=== PATIENT | female | born 1955 | race Caucasian/White ===

== ENCOUNTER 2017-04-02 17:28 | Emergency (ER) | payer MEDICARE, OTHER ==
[~2017-04-02 17:28] MED LIST: PRIL40CA PO; XOPEAER4 INH; [UNRECOGNIZED DRUG - CODE] NEB
[2017-04-02 17:33] VITALS: BP 132/60; PULSE 53; RESP 16; TEMP 98; O2SAT 97
[2017-04-02] MEDS ORDERED: OMEP40CA2 PO (17:38)
[2017-04-02] MEDS ORDERED: traMADol HCL 50 MG TAB PO ONE (17:45)
--- NOTE | 2017-04-02 17:52 | PD ---
HPI Chief Complaint: Injury Time Seen by Provider: 17:44 Travel History International Travel<30 days: No Contact w/Intl Traveler<30days: No Traveled to known affect area: No History of Present Illness HPI 62-year-old female presents to the emergency room via ambulance for evaluation of right anterior knee pain after being struck on the patella with a baseball just prior to arrival. Her son is a pitcher and while practicing with him, he accidentally threw the ball at her knee. Patient immediately fell to the ground in pain. She could not get up. Pain is exacerbated with any range of motion of the right lower external. Denies any other injuries. Denies lower extremity paresthesias. History of stomach ulcers, varices, liver failure, and bradycardia. She is not on blood thinners. PFSH Past Medical History Hx Anticoagulant Therapy: No Arthritis: Yes Asthma: Yes Atrial Fibrillation: Yes Autoimmune Disease: Yes (lupus) Blood Disorders: No Anxiety: No Depression: No Heart Rhythm Problems: Yes (bradycardia, a-fib, HOLTER MONITOR) Cancer: No Cardiac Catheterization: Yes (10/19/15) Cardiovascular Problems: Yes High Cholesterol: No Chemotherapy: No Chest Pain: Yes Congestive Heart Failure: No COPD: No Cerebrovascular Accident: Yes Developmental Delay: No Diabetes: No Diminished Hearing: No Endocrine: No Gastrointestinal Disorders: Yes (BENIGN ABD TUMOR REMOVED (ENCAP)) GERD: Yes Glaucoma: No Genitourinary: No Headaches: Yes Hepatitis: No Hiatal Hernia: No Hypertension: No Immune Disorder: No Kidney Stones: No Musculoskeletal: Yes Neurologic: Yes (HX OF SHINGLES -HAS POST NEURALGIA PAIN) Psychiatric: Yes Respiratory: Yes (ASTHMA) Immunizations Current: Yes Migraines: No Myocardial Infarction: No Radiation Therapy: No Seizures: Yes (last seizure in 2002 does not take meds) Sleep Apnea: No Thyroid Disease: No Ulcer: Yes Tetanus Vaccination: > 5 Years Influenza Vaccination: Yes ?: Not Menopausal: Yes Past Surgical History Abdominal Surgery: Yes (ABDOMINAL TUMOR REMOVED, DEISY 1974) AICD: No Appendectomy: Yes Cholecystectomy: No Coronary Artery Bypass Graft: No Endocrine Surgery: No Genitourinary Surgery: Yes Gynecologic Surgery: Yes (hyst 1982) Hysterectomy: Yes Joint Replacement: No Neurologic Surgery: No Oral Surgery: Yes (abcess tooth 01/2005, TONSLECTOMY 1963) Pacemaker: No Thoracic Surgery: No Tonsillectomy: Yes Other Surgery: Yes Social History Alcohol Use: No Tobacco Use: No Substance Use: No Allergies-Medications (Allergen,Severity, Reaction): Coded Allergies: Aspirin (Verified Allergy, Severe, RESPIRATORY/GASTRO DISTRESS, 04/02/17) Beta Blockers (Verified Allergy, Severe, DECREASED HEART RATE, 04/02/17) Caffeine (Verified Allergy, Severe, Seizures, 04/02/17) Contrast Media (Verified Allergy, Severe, Anaphylaxis, 04/02/17) CAUSES ANAPHALYXSIS IN PT, PT MUST BE PREMEDICATED WITH CLARITIN, ZANTAC AND PREDNISONE Lidocaine (Verified Allergy, Severe, Anaphylaxis, 04/02/17) Sudafed (Unverified Allergy, Severe, SUSTAINED ATRIAL FIB, 04/02/17) Ceftin (Verified Allergy, Unknown, unknown, 04/02/17) Doxycycline (Verified Allergy, Unknown, unknown, 04/02/17) Uncoded Allergies: decongestants (Adverse Reaction, Severe, AFib, 05/24/13) Reported Meds & Prescriptions Reported Meds & Active Scripts Active Reported Omeprazole 40 Mg Cap 40 Mg PO DAILY Xopenex Hfa 15 GM Inh (Levalbuterol 15 GM Inh) Unknown Strength Aer Unknown Dose INH Q4HR PRN Shake well before using. (1 puff = 45 mcg) Xopenex Neb (Levalbuterol HCl) Unknown Strength Neb Unknown Dose NEB QID PRN Review of Systems Except as stated in HPI: all other systems reviewed are Neg Physical Exam Narrative GENERAL: Well-nourished, well-developed female in no acute distress. Afebrile. Ambulatory. SKIN: Focused skin assessment warm/dry. 2 cm area of ecchymosis and 4 cm area of erythema to the right anterior knee. HEAD: Normocephalic. EYES: No scleral icterus. No injection or drainage. NECK: Supple, trachea midline. No JVD or lymphadenopathy. CARDIOVASCULAR: Regular rate and rhythm without murmurs, gallops, or rubs. RESPIRATORY: Breath sounds equal bilaterally. No accessory muscle use. EXTREMITY: Right knee is extremely tender to palpation over the patella. Limited range of motion secondary to pain. 2+ dorsalis pedis pulse. Full range motion of the right foot and ankle. Data Data Last Documented VS Vital Signs Date Time Temp Pulse Resp B/P Pulse Ox O2 Delivery O2 Flow Rate FiO2 04/02/17 17:33 98.0 53 16 132/60 97 Room Air Orders Knee, Complete (4vws) (04/02/17 ) Tramadol (Ultram) (04/02/17 17:45) Acetaminophen (Tylenol) (04/02/17 18:00) MDM Medical Decision Making Medical Screen Exam Complete: Yes Emergency Medical Condition: Yes Medical Record Reviewed: Yes Differential Diagnosis Fracture, contusion, strain, sprain Narrative Course 62-year-old female presents to the emergency room for evaluation of right knee pain after a baseball strike her knee just prior to arrival. Patient states pain is severe and she cannot walk on it. Physical exam reveals a 2 cm area of ecchymosis in the right anterior knee. It is extremely to palpation. Right lower extremity is neurovascularly intact with 2+ dorsalis pedis pulse. Patient given Tylenol, as requested, for pain. X-ray is negative for acute bony abnormality. Patient has severe osteoarthritis and was made aware. Placed in Benjy wrap and given crutches to use for support. She was discharged with orthopedic instructions and told to follow-up with the primary care physician or return for worsening symptoms. She stands and agrees to plan. Diagnosis Primary Impression: Contusion of right knee Qualified Code: S80.01XA - Contusion of right knee, initial encounter Referrals: Primary Care Physician Patient Instructions: Contusion in Adults (ED), General Instructions Additional Instructions: Rest and drink plenty of fluids. Take Tylenol as directed, as needed for pain. Elevate, keep wrapped, and apply ice to the affected area for 20 minutes at a time, as needed for pain and swelling. Follow-up with a primary care physician. Return to the emergency room for worsening symptoms. Med/Other Pt SpecificInfo: Prescription(s) given Disposition: 01 DISCHARGE HOME Condition: Stable Ellen Edward Apr 02, 2017 17:51
[2017-04-02] MEDS ORDERED: ACETAMINOPHEN 325 MG TAB PO ONE (18:00)
--- NOTE | 2017-04-02 18:47 | RADRPT ---
EXAM DATE/TIME: 04/02/2017 18:17 [facility] COMPARISON: No previous studies available for comparison. INDICATIONS : Hit in knee with a baseball MEDICAL HISTORY : A-Fib SURGICAL HISTORY : None. ENCOUNTER: Initial ACUITY: 1 day PAIN SCORE: 10/10 LOCATION: Right knee FINDINGS: Severe osteoarthritis is noted involving the patellofemoral joint and moderate osteoarthritis is note d involving the medial femoral tibial joint. There is a large suprapatellar knee joint effusion. Th ere is no acute fracture or dislocation. CONCLUSION: 1. Severe osteoarthritis involving the patellofemoral joint and moderate osteoarthritis involving th e medial femoral tibial joint. 2. Large suprapatellar knee joint effusion. 3. No acute fracture or dislocation. Lemuel Martins MD on April 02, 2017 at 18:34 Board Certified Radiologist. This report was verified electronically.
== END 2017-04-02 19:33 | disposition home or self-care (01) ==
LOC: PHEFT 17:28
DX: S80.01XA Contusion of right knee, initial encounter (principal); W21.03XA Struck by baseball, initial encounter; Y93.64 Activity, baseball
CPT/HCPCS: 73564; 99283; E0113

== ENCOUNTER 2017-09-16 09:54 | Emergency (ER) | payer MEDICARE, OTHER ==
[~2017-09-16] VITALS: Ht 170.2 cm; Wt 124.9 kg
[~2017-09-16 09:54] MED LIST changes: +OMEP40CA2 PO; -PRIL40CA PO
[2017-09-16 10:21] VITALS: BP 139/74; PULSE 80; RESP 16; TEMP 99.9; O2SAT 97
--- NOTE | 2017-09-16 11:16 | PD ---
HPI Chief Complaint: Cold / Flu Symptoms Time Seen by Provider: 10:48 Travel History International Travel<30 days: No Contact w/Intl Traveler<30days: No Traveled to known affect area: No History of Present Illness HPI 62-year-old female here with sinus pain and pressure, cough, and fever 6 days. She reports occasional shortness of breath with coughing episodes. She reports mucopurulent nasal discharge. Symptoms severity is moderate. No aggravating or relieving factors. PFSH Past Medical History Hx Anticoagulant Therapy: No Arthritis: Yes Asthma: Yes Atrial Fibrillation: Yes Autoimmune Disease: Yes (lupus) Blood Disorders: No Anxiety: No Depression: No Heart Rhythm Problems: Yes (bradycardia, a-fib, HOLTER MONITOR) Cancer: No Cardiac Catheterization: Yes (10/19/15) Cardiovascular Problems: Yes High Cholesterol: No Chemotherapy: No Chest Pain: Yes Congestive Heart Failure: No COPD: No Cerebrovascular Accident: Yes Developmental Delay: No Diabetes: No Diminished Hearing: No Endocrine: No Gastrointestinal Disorders: Yes (BENIGN ABD TUMOR REMOVED (ENCAP)) GERD: Yes Glaucoma: No Genitourinary: No Headaches: Yes Hepatitis: No Hiatal Hernia: No Hypertension: No Immune Disorder: No Kidney Stones: No Musculoskeletal: Yes Neurologic: Yes (HX OF SHINGLES -HAS POST NEURALGIA PAIN) Psychiatric: Yes Respiratory: Yes (asthma) Immunizations Current: Yes Migraines: No Myocardial Infarction: No Radiation Therapy: No Seizures: Yes (last seizure in 2002 does not take meds) Sleep Apnea: No Thyroid Disease: No Ulcer: Yes Tetanus Vaccination: > 5 Years Influenza Vaccination: Yes ?: Not Menopausal: Yes Past Surgical History Abdominal Surgery: Yes (ABDOMINAL TUMOR REMOVED, DEISY 1974) AICD: No Appendectomy: Yes Cholecystectomy: No Coronary Artery Bypass Graft: No Endocrine Surgery: No Genitourinary Surgery: Yes Gynecologic Surgery: Yes (hyst 1982) Hysterectomy: Yes Joint Replacement: No Neurologic Surgery: No Oral Surgery: Yes (abcess tooth 01/2005, TONSLECTOMY 1963) Pacemaker: No Thoracic Surgery: No Tonsillectomy: Yes Other Surgery: Yes Social History Alcohol Use: No Tobacco Use: No Substance Use: No Allergies-Medications (Allergen,Severity, Reaction): Coded Allergies: acebutolol (Unverified Allergy, Severe, DECREASED HEART RATE, 09/16/17) aspirin (Unverified Allergy, Severe, RESPIRATORY/GASTRO DISTRESS, 09/16/17) atenolol (Unverified Allergy, Severe, DECREASED HEART RATE, 09/16/17) betaxolol (Unverified Allergy, Severe, DECREASED HEART RATE, 09/16/17) caffeine (Unverified Allergy, Severe, Seizures, 09/16/17) carvedilol (Unverified Allergy, Severe, DECREASED HEART RATE, 09/16/17) diatrizoate meglumine (Unverified Allergy, Severe, Anaphylaxis, 09/16/17) CAUSES ANAPHALYXSIS IN PT, PT MUST BE PREMEDICATED WITH CLARITIN, ZANTAC AND PREDNISONE gadobenic acid (Unverified Allergy, Severe, Anaphylaxis, 09/16/17) CAUSES ANAPHALYXSIS IN PT, PT MUST BE PREMEDICATED WITH CLARITIN, ZANTAC AND PREDNISONE gadodiamide (Unverified Allergy, Severe, Anaphylaxis, 09/16/17) CAUSES ANAPHALYXSIS IN PT, PT MUST BE PREMEDICATED WITH CLARITIN, ZANTAC AND PREDNISONE gadoteridol (Unverified Allergy, Severe, Anaphylaxis, 09/16/17) CAUSES ANAPHALYXSIS IN PT, PT MUST BE PREMEDICATED WITH CLARITIN, ZANTAC AND PREDNISONE iodixanol (Unverified Allergy, Severe, Anaphylaxis, 09/16/17) CAUSES ANAPHALYXSIS IN PT, PT MUST BE PREMEDICATED WITH CLARITIN, ZANTAC AND PREDNISONE iohexol (Unverified Allergy, Severe, Anaphylaxis, 09/16/17) CAUSES ANAPHALYXSIS IN PT, PT MUST BE PREMEDICATED WITH CLARITIN, ZANTAC AND PREDNISONE labetalol (Unverified Allergy, Severe, DECREASED HEART RATE, 09/16/17) lidocaine (Unverified Allergy, Severe, Anaphylaxis, 09/16/17) metoprolol (Unverified Allergy, Severe, DECREASED HEART RATE, 09/16/17) nebivolol (Unverified Allergy, Severe, DECREASED HEART RATE, 09/16/17) pindolol (Unverified Allergy, Severe, DECREASED HEART RATE, 09/16/17) propranolol (Unverified Allergy, Severe, DECREASED HEART RATE, 09/16/17) pseudoephedrine (Unverified Allergy, Severe, SUSTAINED ATRIAL FIB, 09/16/17 ) sotalol (Unverified Allergy, Severe, DECREASED HEART RATE, 09/16/17) timolol (Unverified Allergy, Severe, DECREASED HEART RATE, 09/16/17) cefuroxime (Unverified Allergy, Unknown, unknown, 09/16/17) doxycycline (Unverified Allergy, Unknown, unknown, 09/16/17) Uncoded Allergies: decongestants (Adverse Reaction, Severe, AFib, 09/16/17) . Reported Meds & Prescriptions Reported Meds & Active Scripts Active Amoxicillin 500 Mg Tab 500 Mg PO TID 10 Days Review of Systems Except as stated in HPI: all other systems reviewed are Neg General / Constitutional: Positive: Fever HENT: Positive: Congestion Respiratory: Positive: Cough, Shortness of Breath Physical Exam Narrative GENERAL: Alert ill-appearing female in no distress. SKIN: Warm and dry. HEAD: Normocephalic. EYES: No scleral icterus. No injection or drainage. MOUTH: Pharyngeal erythema without tonsillar hypertrophy or exudate. NECK: Supple, trachea midline. No JVD or lymphadenopathy. CARDIOVASCULAR: Regular rate and rhythm without murmurs, gallops, or rubs. RESPIRATORY: Breath sounds equal bilaterally. No accessory muscle use. GASTROINTESTINAL: Abdomen soft, non-tender, nondistended. MUSCULOSKELETAL: No cyanosis, or edema. BACK: Nontender without obvious deformity. No CVA tenderness. Data Data Last Documented VS Vital Signs Date Time Temp Pulse Resp B/P (MAP) Pulse Ox O2 Delivery O2 Flow Rate FiO2 09/16/17 10:37 Room Air 09/16/17 10:21 99.9 80 16 139/74 (95) 97 Orders Orders Ed Discharge Order (09/16/17 11:21) MDM Medical Decision Making Medical Screen Exam Complete: Yes Emergency Medical Condition: Yes Differential Diagnosis Influenza, URI, sinusitis, bronchitis, pneumonia Narrative Course 62-year-old female here with fever, sinus pain and pressure, reported purulent nasal discharge. She is requesting a refill of her inhaler as she has run out. She has tenderness over the frontal maxillary sinuses. She appears to have sinusitis/viral URI. Patient reports she can only take amoxicillin and Xopenex. Diagnosis Primary Impression: Sinusitis Qualified Codes: J01.10 - Acute frontal sinusitis, unspecified Referrals: Primary Care Physician Scripts Prednisone (Prednisone) 20 Mg Tab 20 MG PO BID for 5 Days, #10 TAB 0 Refills Prov: Lily Leal 09/16/17 Levalbuterol 15 GM Inh (Xopenex Hfa 15 GM Inh) 45 Mcg/Act Aer 90 MCG INH Q4HR, #2 INHALER 0 Refills Shake well before using. (1 puff = 45 mcg) Prov: Lily Leal 09/16/17 Amoxicillin (Amoxicillin) 500 Mg Tab 500 MG PO TID for Infection for 10 Days, TAB 0 Refills Prov: Lily Leal 09/16/17 Disposition: 01 DISCHARGE HOME Condition: Stable Lily Leal Sep 16, 2017 11:16
[2017-09-16] MEDS ORDERED: AMOX500T PO (11:19)
[2017-09-16] MEDS ORDERED: XOPEAER4 INH (12:02)
[2017-09-16] MEDS ORDERED: PRED20 PO (12:02)
== END 2017-09-16 11:21 | disposition home or self-care (01) ==
LOC: PHEFT 09:54
DX: J01.10 Acute frontal sinusitis, unspecified (principal); R05 Cough; R50.9 Fever, unspecified; R06.02 Shortness of breath; R09.3 Abnormal sputum; Z87.39 Personal history of other diseases of the musculoskeletal system and connective tissue; Z87.09 Personal history of other diseases of the respiratory system; Z86.79 Personal history of other diseases of the circulatory system; Z86.2 Personal history of diseases of the blood and blood-forming organs and certain disorders involving the immune mechanism; Z87.19 Personal history of other diseases of the digestive system; Z86.69 Personal history of other diseases of the nervous system and sense organs
CPT/HCPCS: 99284

== ENCOUNTER 2017-10-09 01:02 | Emergency (ER) | payer MEDICARE, OTHER ==
[~2017-10-09] VITALS: Ht 170.2 cm; Wt 122.5 kg
[~2017-10-09 01:02] MED LIST changes: +AMOX500T PO; -OMEP40CA2 PO; +PRED20 PO; -[UNRECOGNIZED DRUG - CODE] NEB
[2017-10-09 01:09] VITALS: BP 160/68; PULSE 62; RESP 22; TEMP 97.7; O2SAT 98
--- NOTE | 2017-10-09 01:18 | PD ---
HPI Chief Complaint: Fall Time Seen by Provider: 01:15 Travel History International Travel<30 days: No Contact w/Intl Traveler<30days: No Traveled to known affect area: No History of Present Illness HPI The patient is a 62-year-old female that was at a New Year's green party but did not drink anything and fell on her left thorax area. There was no other injury other than to her left anterior thorax and left lateral chest. She denies specifically any C-spine, T-spine or LS-spine discomfort. She denies any head trauma. The patient states she really cannot take anything but plain Tylenol for pain. PFSH Past Medical History Hx Anticoagulant Therapy: No Arthritis: Yes Asthma: Yes Atrial Fibrillation: Yes Autoimmune Disease: Yes (lupus) Blood Disorders: No Anxiety: No Depression: No Heart Rhythm Problems: Yes (bradycardia, a-fib, HOLTER MONITOR) Cancer: No Cardiac Catheterization: Yes (10/19/15) Cardiovascular Problems: Yes High Cholesterol: No Chemotherapy: No Chest Pain: Yes Congestive Heart Failure: No COPD: No Cerebrovascular Accident: Yes Developmental Delay: No Diabetes: No Diminished Hearing: No Endocrine: No Gastrointestinal Disorders: Yes (BENIGN ABD TUMOR REMOVED (ENCAP)) GERD: Yes Glaucoma: No Genitourinary: No Headaches: Yes Hepatitis: No Hiatal Hernia: No Hypertension: No Immune Disorder: No Kidney Stones: No Musculoskeletal: Yes Neurologic: Yes (HX OF SHINGLES -HAS POST NEURALGIA PAIN) Psychiatric: Yes Respiratory: Yes (asthma) Immunizations Current: Yes Migraines: No Myocardial Infarction: No Radiation Therapy: No Seizures: Yes (last seizure in 2002 does not take meds) Sleep Apnea: No Thyroid Disease: No Ulcer: Yes ?: Not Menopausal: Yes Past Surgical History Abdominal Surgery: Yes (ABDOMINAL TUMOR REMOVED, APPJony 1974) AICD: No Appendectomy: Yes Cholecystectomy: No Coronary Artery Bypass Graft: No Endocrine Surgery: No Genitourinary Surgery: Yes Gynecologic Surgery: Yes (hyst 1982) Hysterectomy: Yes Joint Replacement: No Neurologic Surgery: No Oral Surgery: Yes (abcess tooth 01/2005, TONSLECTOMY 1963) Pacemaker: No Thoracic Surgery: No Tonsillectomy: Yes Other Surgery: Yes Social History Alcohol Use: No Tobacco Use: No Substance Use: No Allergies-Medications (Allergen,Severity, Reaction): Coded Allergies: Iodinated Contrast- Oral and IV Dye (Verified Allergy, Severe, 10/09/17) acebutolol (Unverified Allergy, Severe, DECREASED HEART RATE, 10/09/17) aspirin (Unverified Allergy, Severe, RESPIRATORY/GASTRO DISTRESS, 10/09/17) atenolol (Unverified Allergy, Severe, DECREASED HEART RATE, 10/09/17) betaxolol (Unverified Allergy, Severe, DECREASED HEART RATE, 10/09/17) caffeine (Unverified Allergy, Severe, Seizures, 10/09/17) carvedilol (Unverified Allergy, Severe, DECREASED HEART RATE, 10/09/17) diatrizoate meglumine (Unverified Allergy, Severe, Anaphylaxis, 10/09/17) CAUSES ANAPHALYXSIS IN PT, PT MUST BE PREMEDICATED WITH CLARITIN, ZANTAC AND PREDNISONE gadobenic acid (Unverified Allergy, Severe, Anaphylaxis, 10/09/17) CAUSES ANAPHALYXSIS IN PT, PT MUST BE PREMEDICATED WITH CLARITIN, ZANTAC AND PREDNISONE gadodiamide (Unverified Allergy, Severe, Anaphylaxis, 10/09/17) CAUSES ANAPHALYXSIS IN PT, PT MUST BE PREMEDICATED WITH CLARITIN, ZANTAC AND PREDNISONE gadoteridol (Unverified Allergy, Severe, Anaphylaxis, 10/09/17) CAUSES ANAPHALYXSIS IN PT, PT MUST BE PREMEDICATED WITH CLARITIN, ZANTAC AND PREDNISONE iodixanol (Unverified Allergy, Severe, Anaphylaxis, 10/09/17) CAUSES ANAPHALYXSIS IN PT, PT MUST BE PREMEDICATED WITH CLARITIN, ZANTAC AND PREDNISONE iohexol (Unverified Allergy, Severe, Anaphylaxis, 10/09/17) CAUSES ANAPHALYXSIS IN PT, PT MUST BE PREMEDICATED WITH CLARITIN, ZANTAC AND PREDNISONE labetalol (Unverified Allergy, Severe, DECREASED HEART RATE, 10/09/17) lidocaine (Unverified Allergy, Severe, Anaphylaxis, 10/09/17) metoprolol (Unverified Allergy, Severe, DECREASED HEART RATE, 10/09/17) nebivolol (Unverified Allergy, Severe, DECREASED HEART RATE, 10/09/17) pindolol (Unverified Allergy, Severe, DECREASED HEART RATE, 10/09/17) propranolol (Unverified Allergy, Severe, DECREASED HEART RATE, 10/09/17) pseudoephedrine (Unverified Allergy, Severe, SUSTAINED ATRIAL FIB, 10/09/17) sotalol (Unverified Allergy, Severe, DECREASED HEART RATE, 10/09/17) timolol (Unverified Allergy, Severe, DECREASED HEART RATE, 10/09/17) cefuroxime (Unverified Allergy, Unknown, unknown, 10/09/17) doxycycline (Unverified Allergy, Unknown, unknown, 10/09/17) Uncoded Allergies: decongestants (Adverse Reaction, Severe, AFib, 09/16/17) . Reported Meds & Prescriptions Reported Meds & Active Scripts Active No Active Prescriptions or Reported Medications Review of Systems Except as stated in HPI: all other systems reviewed are Neg Physical Exam Narrative GENERAL: Well-nourished, well-developed patient in moderate apparent distress with her left chest wall pain. Her vital signs show blood pressure 160/68 but are otherwise normal. SKIN: Focused skin assessment warm/dry. No external evidence of contusions are noted. HEAD: Normocephalic. EYES: No scleral icterus. No injection or drainage. NECK: Supple, trachea midline. No JVD or lymphadenopathy. CARDIOVASCULAR: Regular rate and rhythm without murmurs, gallops, or rubs. RESPIRATORY: Breath sounds equal bilaterally. No accessory muscle use. There is tenderness over the left chest wall and anterior sternal area but no bony deformity, crepitus neither bony nor air is noted. There is no flail. GASTROINTESTINAL: Abdomen soft, non-tender, nondistended. MUSCULOSKELETAL: No cyanosis, or edema. BACK: Nontender without obvious deformity. No CVA tenderness. Data Data Last Documented VS Vital Signs Date Time Temp Pulse Resp B/P (MAP) Pulse Ox O2 Delivery O2 Flow Rate FiO2 10/09/17 01:14 62 22 99 Room Air 10/09/17 01:09 97.7 160/68 (98) Orders Orders Ct Thorax/ Chest Wo Iv Contras (10/09/17 01:15) MDM Medical Decision Making Medical Screen Exam Complete: Yes Emergency Medical Condition: Yes Medical Record Reviewed: Yes Interpretation(s) The CT thorax shows no acute disease. Differential Diagnosis Chest wall contusion, fracture sternum, rib fracture, flail chest, pulmonary contusion, pneumothorax Narrative Course The patient appears to have a chest wall contusion. She will this week follow- up with her primary care physician. She should cough and deep breathe. She is told about the signs and symptoms of pneumonia and return immediately should these occur. Diagnosis Primary Impression: Chest wall contusion Additional Instructions: As we discussed, cough and deep breathe, this is how you can possibly prevent a pneumonia. If he gets signs and symptoms of pneumonia with increased pain, fever and shortness of breath, please return to emergency department for reevaluation. Med/Other Pt SpecificInfo: No Change to Meds Scripts No Active Prescriptions or Reported Meds Disposition: 01 DISCHARGE HOME Condition: Stable Taz Lee MD Oct 09, 2017 01:17
--- NOTE | 2017-10-09 02:34 | RADRPT ---
EXAM DATE/TIME: 10/09/2017 02:11 [facility] COMPARISON: No previous studies available for comparison. INDICATIONS : Tripped and fell left side chest pain RADIATION DOSE: 28.88 CTDIvol (mGy) MEDICAL HISTORY : Arthritis. Cardiovascular disease Lupus. CVA SURGICAL HISTORY : Appendectomy. Hysterectomy. ENCOUNTER: Initial ACUITY: 1 day PAIN SCALE: 8/10 LOCATION: Left chest TECHNIQUE: Volumetric scanning of the chest was performed. Using automated exposure control and adjustment of t he mA and/or kV according to patient size, radiation dose was kept as low as reasonably achievable to obtain optimal diagnostic quality images. DICOM format image data is available electronically for r eview and comparison. Follow-up recommendations for detected pulmonary nodules are based at a minimum on nodule size and pa tient risk factors according to Fleischner Society Guidelines. FINDINGS: LUNGS: There is no consolidation or pneumothorax. No concerning pulmonary nodule is visualized. PLEURAE: There is no pleural thickening or pleural effusion. MEDIASTINUM: The heart and great vessels demonstrate no acute abnormality. There is no mediastinal or hilar lymph adenopathy. AXILLAE: Within normal limits. No lymphadenopathy. MUSCULOSKELETAL: Within normal limits for patient age. MISCELLANEOUS: The visualized upper abdominal organs demonstrate no acute abnormality. CONCLUSION: No acute disease. Cornelius Morse Jr., MD on October 09, 2017 at 2:30 Board Certified Radiologist. This report was verified electronically.
[2017-10-09 03:19] VITALS: BP 137/74; TEMP 98.3
== END 2017-10-09 03:22 | disposition home or self-care (01) ==
LOC: PHED 01:02
DX: S20.212A Contusion of left front wall of thorax, initial encounter (principal); Z87.39 Personal history of other diseases of the musculoskeletal system and connective tissue; Z87.09 Personal history of other diseases of the respiratory system; Z86.79 Personal history of other diseases of the circulatory system; Z87.19 Personal history of other diseases of the digestive system; Z86.69 Personal history of other diseases of the nervous system and sense organs; W19.XXXA Unspecified fall, initial encounter
CPT/HCPCS: 71250; 99284

== ENCOUNTER 2017-10-13 19:18 | Emergency (ER) | payer MEDICARE, OTHER ==
[~2017-10-13] VITALS: Ht 167.6 cm; Wt 119.0 kg
[2017-10-13 19:32] VITALS: BP 142/67; PULSE 57; RESP 20; TEMP 98.6; O2SAT 98
[2017-10-13] MEDS ORDERED: SODIUM CHLORIDE 0.9% FLUSH 10 ML FLUSH IVF PRN (20:00)
[2017-10-13] MEDS ORDERED: HYDROmorphone HCL PF 2 MG/ML VIAL IV PUSH ONE (20:15)
[2017-10-13 20:27] LABS: AUTOMATED NEUTROPHIL # 4.5 TH/MM3 (1.8-7.7); BASOPHIL % 0.4 % (0.0-2.0); EOSINOPHIL # 0.2 TH/MM3 (0-0.4); EOSINOPHIL % 2.9 % (0.0-4.0); HEMATOCRIT 42.7 % (35.0-46.0); LYMPH % 29.5 % (9.0-44.0); LYMPHOCYTE # 2.2 TH/MM3 (1.0-4.8); MEAN CELL VOLUME 83.9 FL (80.0-100.0); MEAN CORPUSCULAR HEMOGLOBIN 27.6 PG (27.0-34.0); MEAN CORPUSCULAR HGB CONC 32.9 % (32.0-36.0); MEAN PLATELET VOLUME 7.2 FL (7.0-11.0); MONO % 7.1 % (0.0-8.0); MONOCYTE # 0.5 TH/MM3 (0-0.9); NEUT % 60.1 % (16.0-70.0); PLATELET COUNT 257 TH/MM3 (150-450); RED BLOOD COUNT 5.09 MIL/MM3 (4.00-5.30); RED CELL DISTRIBUTION WIDTH 14.8 % (11.6-17.2); WHITE BLOOD COUNT 7.6 TH/MM3 (4.0-11.0)
[2017-10-13] MEDS ORDERED: MORPHINE SULFATE 2 MG/ML INJ IV PUSH ONE ×2 (20:30→20:45)
[2017-10-13 20:44] LABS: ALBUMIN 3.6 GM/DL (3.4-5.0); AST (GOT) 19 U/L (15-37); BLOOD UREA NITROGEN 16 MG/DL (7-18); CALCIUM 9.2 MG/DL (8.5-10.1); CHLORIDE 107 MEQ/L (98-107); CREATININE 0.92 MG/DL (0.50-1.00); GLOMERULAR FILTRATION RATE 62 ML/MIN (>89); GLUCOSE,RANDOM 100 MG/DL (74-106); SODIUM (NA) 141 MEQ/L (136-145)
[2017-10-13 20:46] LABS: ALT (GPT) 34 U/L (10-53)
[2017-10-13 20:49] LABS: ALKALINE PHOSPHATASE 61 U/L (45-117); TOTAL BILIRUBIN ADULT 0.3 MG/DL (0.2-1.0); TOTAL PROTEIN 7.5 GM/DL (6.4-8.2); TROPONIN I LESS THAN 0.02 NG/ML (0.02-0.05)
[2017-10-13] MEDS ORDERED: ONDANSETRON HCL 4 MG/2 ML VIAL IV PUSH ONE (21:00)
--- NOTE | 2017-10-13 21:00 | RADRPT ---
EXAM DATE/TIME: 10/13/2017 20:32 [facility] COMPARISON: CHEST SINGLE AP, September 30, 2016, 9:07. INDICATIONS : Chest pain. MEDICAL HISTORY : Arthritis. Cardiovascular disease Lupus. CVA SURGICAL HISTORY : Appendectomy. Hysterectomy. ENCOUNTER: Initial ACUITY: 1 day PAIN SCORE: 10/10 LOCATION: Bilateral chest FINDINGS: A single view of the chest demonstrates the lungs to be symmetrically aerated without evidence of mas s, infiltrate or effusion. Mild basilar atelectasis. The cardiomediastinal contours are prominent. O sseous structures are intact. CONCLUSION: 1. Cardiomegaly. Minimal basilar atelectasis. Erik Falk MD on October 13, 2017 at 20:57 Board Certified Radiologist. This report was verified electronically.
[2017-10-13 21:06] VITALS: BP 159/69; PULSE 52; RESP 18; O2SAT 99
--- NOTE | 2017-10-13 21:11 | PD ---
HPI Chief Complaint: Chest Pain Time Seen by Provider: 19:41 Travel History International Travel<30 days: No Contact w/Intl Traveler<30days: No Traveled to known affect area: No History of Present Illness HPI 62-year-old female complains of the worst pain of her life which started while she was waiting in line for fast food. She states it feels as though there is no mobility of the lower anterior chest wall. Inspiration is painful. No coughing or fever. She reports a fall a few days prior and a CT chest that time was unremarkable. Tylenol has been marginally helpful at home. Onset of the pain today was about 1 hour prior to ER arrival. There is radiation of pain to the left neck. PFSH Past Medical History Hx Anticoagulant Therapy: No Arthritis: Yes Asthma: Yes Atrial Fibrillation: Yes Autoimmune Disease: Yes (lupus) Blood Disorders: No Anxiety: No Depression: No Heart Rhythm Problems: Yes (bradycardia, a-fib, ) Cancer: No Cardiac Catheterization: Yes (10/19/15) Cardiovascular Problems: Yes (Bradycardia) High Cholesterol: No Chemotherapy: No Chest Pain: Yes Congestive Heart Failure: No COPD: No Cerebrovascular Accident: Yes Developmental Delay: No Diabetes: No Patient Takes Glucophage: No Diminished Hearing: No Endocrine: No Gastrointestinal Disorders: Yes (BENIGN ABD TUMOR REMOVED (ENCAP)) GERD: Yes Glaucoma: No Genitourinary: No Headaches: Yes Hepatitis: No Hiatal Hernia: No Hypertension: No Immune Disorder: No Kidney Stones: No Musculoskeletal: Yes Neurologic: Yes (HX OF SHINGLES -HAS POST NEURALGIA PAIN) Psychiatric: Yes Respiratory: Yes (asthma) Immunizations Current: Yes Migraines: No Myocardial Infarction: No Radiation Therapy: No Seizures: Yes (last seizure in 2002 does not take meds) Sleep Apnea: No Thyroid Disease: No Ulcer: Yes Tetanus Vaccination: > 5 Years Influenza Vaccination: No ?: Not Menopausal: Yes : 7 Para: 4 Miscarriage: 3 Past Surgical History Abdominal Surgery: Yes (ABDOMINAL TUMOR REMOVED 1994, APPE 1974) AICD: No Appendectomy: Yes Cholecystectomy: No Coronary Artery Bypass Graft: No Endocrine Surgery: No Genitourinary Surgery: Yes Gynecologic Surgery: Yes (hyst 1982) Hysterectomy: Yes Joint Replacement: No Neurologic Surgery: No Oral Surgery: Yes (abcess tooth 01/2005, TONSLECTOMY 1963) Pacemaker: No Thoracic Surgery: No Tonsillectomy: Yes Other Surgery: Yes Social History Alcohol Use: No Tobacco Use: No Substance Use: No Allergies-Medications (Allergen,Severity, Reaction): Coded Allergies: Iodinated Contrast- Oral and IV Dye (Verified Allergy, Severe, 10/13/17) acebutolol (Unverified Allergy, Severe, DECREASED HEART RATE, 10/13/17) aspirin (Unverified Allergy, Severe, RESPIRATORY/GASTRO DISTRESS, 10/13/17) atenolol (Unverified Allergy, Severe, DECREASED HEART RATE, 10/13/17) betaxolol (Unverified Allergy, Severe, DECREASED HEART RATE, 10/13/17) caffeine (Unverified Allergy, Severe, Seizures, 10/13/17) carvedilol (Unverified Allergy, Severe, DECREASED HEART RATE, 10/13/17) diatrizoate meglumine (Unverified Allergy, Severe, Anaphylaxis, 10/13/17) CAUSES ANAPHALYXSIS IN PT, PT MUST BE PREMEDICATED WITH CLARITIN, ZANTAC AND PREDNISONE gadobenic acid (Unverified Allergy, Severe, Anaphylaxis, 10/13/17) CAUSES ANAPHALYXSIS IN PT, PT MUST BE PREMEDICATED WITH CLARITIN, ZANTAC AND PREDNISONE gadodiamide (Unverified Allergy, Severe, Anaphylaxis, 10/13/17) CAUSES ANAPHALYXSIS IN PT, PT MUST BE PREMEDICATED WITH CLARITIN, ZANTAC AND PREDNISONE gadoteridol (Unverified Allergy, Severe, Anaphylaxis, 10/13/17) CAUSES ANAPHALYXSIS IN PT, PT MUST BE PREMEDICATED WITH CLARITIN, ZANTAC AND PREDNISONE iodixanol (Unverified Allergy, Severe, Anaphylaxis, 10/13/17) CAUSES ANAPHALYXSIS IN PT, PT MUST BE PREMEDICATED WITH CLARITIN, ZANTAC AND PREDNISONE iohexol (Unverified Allergy, Severe, Anaphylaxis, 10/13/17) CAUSES ANAPHALYXSIS IN PT, PT MUST BE PREMEDICATED WITH CLARITIN, ZANTAC AND PREDNISONE labetalol (Unverified Allergy, Severe, DECREASED HEART RATE, 10/13/17) lidocaine (Unverified Allergy, Severe, Anaphylaxis, 10/13/17) metoprolol (Unverified Allergy, Severe, DECREASED HEART RATE, 10/13/17) nebivolol (Unverified Allergy, Severe, DECREASED HEART RATE, 10/13/17) pindolol (Unverified Allergy, Severe, DECREASED HEART RATE, 10/13/17) propranolol (Unverified Allergy, Severe, DECREASED HEART RATE, 10/13/17) pseudoephedrine (Unverified Allergy, Severe, SUSTAINED ATRIAL FIB, 10/13/17) sotalol (Unverified Allergy, Severe, DECREASED HEART RATE, 10/13/17) timolol (Unverified Allergy, Severe, DECREASED HEART RATE, 10/13/17) cefuroxime (Unverified Allergy, Unknown, unknown, 10/13/17) doxycycline (Unverified Allergy, Unknown, unknown, 10/13/17) Uncoded Allergies: decongestants (Adverse Reaction, Severe, AFib, 09/16/17) . Reported Meds & Prescriptions Reported Meds & Active Scripts Active Avelox (Moxifloxacin HCl) 400 Mg Tab 400 Mg PO DAILY 7 Days Prednisone 20 Mg Tab 40 Mg PO DAILY 4 Days Take 40 mg (2 tablets) daily for 5 days Percocet (Oxycodone-Acetaminophen) 5-325 mg Tab 1-2 Tab PO Q6H PRN Review of Systems Except as stated in HPI: all other systems reviewed are Neg General / Constitutional: No: Fever Cardiovascular: Positive: Chest Pain or Discomfort Respiratory: No: Cough, Shortness of Breath Physical Exam Narrative GENERAL: Well-nourished well-developed 62-year-old female mild to moderate distress secondary to pain and/or anxiety. SKIN: Warm and dry. HEAD: Atraumatic. Normocephalic. EYES: Pupils equal and round. No scleral icterus. No injection or drainage. ENT: No nasal bleeding or discharge. Mucous membranes pink and moist. NECK: Trachea midline. No JVD. CARDIOVASCULAR: The heart rate is regular. The rhythm is regular. The rate about 50 to 60. RESPIRATORY: Breath sounds are present bilaterally. There is no significant tachypnea. GASTROINTESTINAL: Abdomen soft, non-tender, nondistended. Hepatic and splenic margins not palpable. MUSCULOSKELETAL: Extremities without clubbing, cyanosis, or edema. No obvious deformities. NEUROLOGICAL: Awake and alert. No obvious cranial nerve deficits. Motor grossly within normal limits. Five out of 5 muscle strength in the arms and legs. Normal speech. PSYCHIATRIC: Appropriate mood and affect; insight and judgment normal. Data Data Last Documented VS Vital Signs Date Time Temp Pulse Resp B/P (MAP) Pulse Ox O2 Delivery O2 Flow Rate FiO2 10/13/17 23:06 10/13/17 22:20 49 18 100 Room Air 2.00 10/13/17 19:32 98.6 Vital signs reviewed Orders Orders Electrocardiogram (10/13/17 19:49) Ckmb (Isoenzyme) Profile (10/13/17 19:49) Complete Blood Count With Diff (10/13/17 19:49) Magnesium (Mg) (10/13/17 19:49) Prothrombin Time / Inr (Pt) (10/13/17 19:49) Act Partial Throm Time (Ptt) (10/13/17 19:49) Troponin I (10/13/17 19:49) Chest, Single Ap (10/13/17 19:49) Ecg Monitoring (10/13/17 19:49) Bilateral Bp Monitoring (10/13/17 19:49) Iv Access Insert/Monitor (10/13/17 19:49) Oximetry (10/13/17 19:49) Oxygen Administration (10/13/17 19:49) Sodium Chloride 0.9% Flush (Ns Flush) (10/13/17 20:00) Comprehensive Metabolic Panel (10/13/17 19:49) Hydromorphone Pf Inj (Dilaudid Pf Inj) (10/13/17 20:15) Morphine Inj (Morphine Inj) (10/13/17 20:30) Morphine Inj (Morphine Inj) (10/13/17 20:45) Ondansetron Inj (Zofran Inj) (10/13/17 21:00) Ct Thorax/ Chest Wo Iv Contras (10/13/17 ) Ed Discharge Order (10/13/17 23:01) Labs Laboratory Tests Test 10/13/17 20:05 White Blood Count 7.6 TH/MM3 Red Blood Count 5.09 MIL/MM3 Hemoglobin 14.0 GM/DL Hematocrit 42.7 % Mean Corpuscular Volume 83.9 FL Mean Corpuscular Hemoglobin 27.6 PG Mean Corpuscular Hemoglobin Concent 32.9 % Red Cell Distribution Width 14.8 % Platelet Count 257 TH/MM3 Mean Platelet Volume 7.2 FL Neutrophils (%) (Auto) 60.1 % Lymphocytes (%) (Auto) 29.5 % Monocytes (%) (Auto) 7.1 % Eosinophils (%) (Auto) 2.9 % Basophils (%) (Auto) 0.4 % Neutrophils # (Auto) 4.5 TH/MM3 Lymphocytes # (Auto) 2.2 TH/MM3 Monocytes # (Auto) 0.5 TH/MM3 Eosinophils # (Auto) 0.2 TH/MM3 Basophils # (Auto) 0.0 TH/MM3 CBC Comment DIFF FINAL Differential Comment Prothrombin Time 10.0 SEC Prothromb Time International Ratio 1.0 RATIO Activated Partial Thromboplast Time 25.4 SEC Blood Urea Nitrogen 16 MG/DL Creatinine 0.92 MG/DL Random Glucose 100 MG/DL Total Protein 7.5 GM/DL Albumin 3.6 GM/DL Calcium Level 9.2 MG/DL Magnesium Level 2.0 MG/DL Alkaline Phosphatase 61 U/L Aspartate Amino Transf (AST/SGOT) 19 U/L Alanine Aminotransferase (ALT/SGPT) 34 U/L Total Bilirubin 0.3 MG/DL Sodium Level 141 MEQ/L Potassium Level 4.1 MEQ/L Chloride Level 107 MEQ/L Carbon Dioxide Level 28.0 MEQ/L Anion Gap 6 MEQ/L Estimat Glomerular Filtration Rate 62 ML/MIN Total Creatine Kinase 58 U/L Troponin I LESS THAN 0.02 NG/ML MDM Medical Decision Making Medical Screen Exam Complete: Yes Emergency Medical Condition: Yes Medical Record Reviewed: Yes Differential Diagnosis NSTEMI, unstable angina, coronary vasospasm, PE, PTX, aortic dissection, pericarditis, myocarditis, endocarditis, PNA, esophageal disease, aneurysm, musculoskeletal etiologies, anxiety, cocaine/sympathomimetic abuse Narrative Course CBC & BMP Diagram 10/13/17 20:05 Total Protein 7.5, Albumin 3.6, Calcium Level 9.2, Magnesium Level 2.0, Alkaline Phosphatase 61, Aspartate Amino Transf (AST/SGOT) 19, Alanine Aminotransferase (ALT/SGPT) 34, Total Bilirubin 0.3 Last Impressions Chest X-Ray 10/13/17 1949 Signed Impressions: Service Date/Time: Friday, October 13, 2017 20:32 - CONCLUSION: 1. Cardiomegaly. Minimal basilar atelectasis. Erik Falk MD Chest CT 10/13/17 0000 Signed Impressions: Service Date/Time: Friday, October 13, 2017 22:00 - CONCLUSION: 1. Small left pleural effusion and small pericardial effusion. Minimal basilar atelectasis. No acute bony abnormalities. Mild cardiomegaly. No adenopathy. Erik Falk MD Time spent with patient in room approached 60 minutes Shared decision making guided course of ED stay and all efforts to treat pain and satisfy patient were offered and not limited to a bedside review of two CTs of the chest slice by slice. Course was complicated by refusal to accept some pain medications but not others. Course was complicated by refusal to follow recommended diagnostic evaluation. Pt's expectations considered beyond scope of visit despite all efforts to satisfy. Medical emergency requiring hospital admission considered reasonably safely excluded based on today's evaluation. Review of prior cardiology records and prior visits reveals similar prior complaints leading to ED evaluation. Diagnosis Primary Impression: Chest pain Qualified Codes: R07.9 - Chest pain, unspecified Referrals: Silviano Santacruz MD 2 days Med/Other Pt SpecificInfo: Prescription(s) given Scripts Moxifloxacin (Avelox) 400 Mg Tab 400 MG PO DAILY for Infection for 7 Days, #7 TAB 0 Refills Prov: Rivera Bang MD 10/13/17 Prednisone (Prednisone) 20 Mg Tab 40 MG PO DAILY for 4 Days, #8 TAB 0 Refills Take 40 mg (2 tablets) daily for 5 days Prov: Rivera Bang MD 10/13/17 Oxycodone-Acetaminophen (Percocet) 5-325 mg Tab 1-2 TAB PO Q6H Y for PAIN SCALE 6 TO 10, #12 TAB 0 Refills Prov: Rivera Bang MD 10/13/17 Disposition: 01 DISCHARGE HOME Condition: Stable Rivera Bang MD Oct 13, 2017 21:11
[2017-10-13 22:20] VITALS: BP 138/63; PULSE 49; RESP 18; O2SAT 100
--- NOTE | 2017-10-13 22:32 | RADRPT ---
EXAM DATE/TIME: 10/13/2017 22:00 [facility] COMPARISON: CT THORAX W/O CONTRAST, October 09, 2017, 2:11. INDICATIONS : Chest wall pain. RADIATION DOSE: 10.30 CTDIvol (mGy) MEDICAL HISTORY : Cardiovascular disease. Hypertension. Gastroesophageal reflux disease. Lupus SURGICAL HISTORY : Hysterectomy. Abdominal tumor removed ENCOUNTER: Initial ACUITY: 1 day PAIN SCALE: 5/10 LOCATION: chest TECHNIQUE: Volumetric scanning of the chest was performed. Using automated exposure control and adjustment of t he mA and/or kV according to patient size, radiation dose was kept as low as reasonably achievable to obtain optimal diagnostic quality images. DICOM format image data is available electronically for r eview and comparison. Follow-up recommendations for detected pulmonary nodules are based at a minimum on nodule size and pa tient risk factors according to Fleischner Society Guidelines. FINDINGS: There is minimal dependent atelectasis in the lungs. Trace left pleural fluid. Small pericardial effu ronda. No hilar, mediastinal or axillary adenopathy. Mild cardiomegaly. No acute findings in the upper abdomen. The noted bony abnormalities. CONCLUSION: 1. Small left pleural effusion and small pericardial effusion. Minimal basilar atelectasis. No acute bony abnormalities. Mild cardiomegaly. No adenopathy. Erik Falk MD on October 13, 2017 at 22:27 Board Certified Radiologist. This report was verified electronically.
[2017-10-13] MEDS ORDERED: PRED20 PO (23:01)
[2017-10-13] MEDS ORDERED: AZIT250T3 PO (23:01)
[2017-10-13] MEDS ORDERED: PERC5TAB12 PO (23:01)
[2017-10-13] MEDS ORDERED: MOXI400T4 PO (23:17)
--- NOTE | 2017-10-14 13:29 | EKG ---
Date Performed: 10/13/2017 Time Performed: 21:29:50 PTAGE: 62 years EKG: SINUS BRADYCARDIA Borderline left axis deviation Poor R-wave progression which may be a nor mal variant PREVIOUS TRACING : 09/30/2016 08.20 Compared to prior tracing no significant change DOCTOR: Vinny Chisholm Interpretating Date/Time 10/14/2017 13:27:49
== END 2017-10-13 23:40 | disposition home or self-care (01) ==
LOC: NEPD 19:18
DX: R07.9 Chest pain, unspecified (principal); M54.2 Cervicalgia; Z79.899 Other long term (current) drug therapy
CPT/HCPCS: 71045; 71250; 80053; 82550; 83735; 84484; 85025; 85610; 85730; 93005; 96374; 96375; 99285; J2270; J2405

== ENCOUNTER 2018-06-22 15:11 | Observation (INO) ==
--- NOTE | 2018-06-22 15:43 | ED ---
HPI General Chief Complaint: Chest Pain Stated Complaint: Sob Time Seen by Provider: 06/22/18 15:19 Source: patient Mode of arrival: wheelchair Limitations: no limitations History of Present Illness HPI narrative: 63-year-old female with a history of bradycardia presents emergency department evaluation of midsternal chest pain that started this morning. She states that she was walking to black pickler her son at school when she began having pain. Described as pressure, mild to moderate in severity. Says she has associated shortness of breath and the pain radiates to the left arm. Says this resolved within a couple minutes of sitting. Says this occurred a couple times today so she decided to come in for evaluation. Patient says she has felt her rhythm go from "normal to regular" 4 times a day. She believes she may be dehydrated because she has not been eating or drinking much in the last few days. She says she has had a 'stomach bug'. She also thinks that her blood thinners may be causing her stomach symptoms but she has been taking eliquis for 'a long time'. She has not taken any anticoagulants in 2 days because she was due to transition to Xarelto. She follows Dr. 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 complaint: chest pain Onset (ago): day(s) (this morning) Duration: intermittent Onset: during exertion Pain location: substernal Severity: mild Quality: other (pressure) Pain radiation: LUE Relieving factors: remaining still Exacerbating factors: exertion Treatments prior to arrival chest pain: none Related Data Home Medications Medication Instructions Recorded Confirmed rivaroxaban [Xarelto] 20 mg PO DAILY 06/22/18 06/22/18 Allergies Allergy/AdvReac Type Severity Reaction Status Date / Time acebutolol Allergy Severe DECREASED Verified 06/22/18 15:14 HEART RATE aspirin Allergy Severe RESPIRATORY/GASTRO Verified 06/22/18 15:14 DISTRESS atenolol Allergy Severe DECREASED Verified 06/22/18 15:14 HEART RATE betaxolol Allergy Severe DECREASED Verified 06/22/18 15:14 HEART RATE caffeine Allergy Severe Seizures Verified 06/22/18 15:14 carvedilol Allergy Severe DECREASED Verified 06/22/18 15:14 HEART RATE diatrizoate meglumine Allergy Severe Anaphylaxis Verified 06/22/18 15:14 gadobenic acid Allergy Severe Anaphylaxis Verified 06/22/18 15:14 gadodiamide Allergy Severe Anaphylaxis Verified 06/22/18 15:14 gadoteridol Allergy Severe Anaphylaxis Verified 06/22/18 15:14 Iodinated Contrast- Oral and Allergy Severe Atrial Verified 06/22/18 15:14 IV Dye Fibrillation iodixanol Allergy Severe Anaphylaxis Verified 06/22/18 15:14 iohexol Allergy Severe Anaphylaxis Verified 06/22/18 15:14 labetalol Allergy Severe DECREASED Verified 06/22/18 15:14 HEART RATE lidocaine Allergy Severe Anaphylaxis Verified 06/22/18 15:14 metoprolol Allergy Severe DECREASED Verified 06/22/18 15:14 HEART RATE nebivolol Allergy Severe DECREASED Verified 06/22/18 15:14 HEART RATE pindolol Allergy Severe DECREASED Verified 06/22/18 15:14 HEART RATE propranolol Allergy Severe DECREASED Verified 06/22/18 15:14 HEART RATE pseudoephedrine Allergy Severe SUSTAINED Verified 06/22/18 15:14 ATRIAL FIB sotalol Allergy Severe DECREASED Verified 06/22/18 15:14 HEART RATE timolol Allergy Severe DECREASED Verified 06/22/18 15:14 HEART RATE cefuroxime Allergy Unknown unknown Verified 06/22/18 15:14 doxycycline Allergy Unknown unknown Verified 06/22/18 15:14 decongestants AdvReac Severe AFib Uncoded 06/22/18 15:14 Review of Systems ROS: all other systems reviewed are negative [facility] Medical History Medical History Afib (Acute) GERD (gastroesophageal reflux disease) (Acute) H/O: hysterectomy (Acute) 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 slightly confused. SKIN: Focused skin assessment warm/dry. HEAD: Atraumatic. Normocephalic. EYES: Pupils equal and round. No scleral icterus. No injection or drainage. ENT: No nasal bleeding or discharge. Mucous membranes pink and moist. NECK: Trachea midline. No JVD. CARDIOVASCULAR: Regular rate and rhythm. No murmur appreciated. RESPIRATORY: No accessory muscle use. Clear to auscultation. Breath sounds equal bilaterally. GASTROINTESTINAL: Abdomen soft, mildly tender to palpation, nondistended, no organomegaly. MUSCULOSKELETAL: No obvious deformities. No clubbing. No cyanosis. No edema. Right lower extremity tenderness to palpation without erythema or edema. Left lower extremity without tenderness to palpation, erythema or edema. NEUROLOGICAL: Awake and alert. No obvious cranial nerve deficits. Motor grossly within normal limits. Normal speech. PSYCHIATRIC: Appropriate mood and affect; insight and judgment normal. Course Initial Documented Vital Signs Pulse Rate 48 L 06/22/18 15:14 Respiratory Rate 12 06/22/18 15:14 Blood Pressure 141/61 H 06/22/18 15:14 Pulse Oximetry 100 06/22/18 15:14 Last Documented Vital Signs Temperature 98.2 F 06/25/18 12:00 Pulse Rate 45 L 06/25/18 13:53 Respiratory Rate 18 06/25/18 12:00 Blood Pressure 124/65 06/25/18 12:00 Pulse Oximetry 97 06/25/18 12:00 Medical Decision Making YAW Attestation YAW supervised visit: Yes Attestation: I, Dr. Sims, have reviewed the advance practice practitioner's documentation and am in agreement, met with the patient face to face, made the diagnosis, and the medical decision making was done by me. *My assessment and Findings: Patient is a 63-year-old female who presented with complaint of chest pain in addition to symptom consistent with gastroenteritis. She became chest pain free and did not have any shortness of breath after being in the emergency department. No acute ischemic changes seen on EKG and labs were relatively unremarkable. Patient was admitted for serial troponins and EKGs with possible stress test. She was admitted by Dr. Jensen, hospitalist on-call, and site of the chest pain center as she is also had the symptoms of gastroenteritis. MDM Narrative Medical decision making narrative: 63y female presents to the ED for evaluation of exertional chest pain that started today. No cardiac work up in 2 years. His funeral service apprentice locally is Dr. East. He also follows [facility]. EKG sinus bradycardia rate [address] elevation or depression. As I was in the room evaluating this patient, the rhythm strip appeared as if there may have been random changes such as atrial flutter however heart rate remained in the 40s-60s. Upon reevaluation @1746, pt states she has lower abdominal cramping with associated diarrhea. She says that since she has been in the ED, she has had 4 episodes of nonbloody, watery diarrhea. She denies recent antibiotic use or hospital visits. She says her abdominal cramping has been persistent for a month and the diarrhea started today. She says her son had similar symptoms. Patient is currently chest pain free and not SOB. I believe the abdominal pain may be secondary to gastroenteritis as there are no concerning symptoms here in the ED. She also has had a sick contact. Ordered C diff test as she had 5 loose stools in the ED. Labs are stable. Cardiac enzymes negative. I believe patient would be a candidate for the chest pain center however, she has abdominal cramping and diarrhea which would be treated or evaluated in the [facility]. I spoke with Dr. Jensen who agreed to the admission. Medical Screen Exam Complete: Yes Emergency Medical Condition: Yes Lab Data Result diagrams: 06/24/18 03:45 06/22/18 15:40 Lab Results 06/22/18 06/22/18 06/22/18 Range/Units 15:40 15:40 15:40 WBC 6.4 (4.0-11.0) th/mm3 RBC 5.36 H (4.00-5.30) mil/mm3 Hgb 14.6 (11.6-15.3) gm/dL Hct 45.6 (35.0-46.0) % MCV 85.1 (80.0-100.0) fL MCH 27.4 (27.0-34.0) pg MCHC 32.1 (32.0-36.0) % RDW 14.3 (11.6-17.2) % Plt Count 258 (150-450) th/mm3 MPV 7.6 (7.0-11.0) fL Neut % (Auto) 60.8 (16.0-70.0) % Lymph % (Auto) 27.5 (9.0-44.0) % [place] % (Auto) 9.4 H (0.0-8.0) % Eos % (Auto) 1.8 (0.0-4.0) % Baso % (Auto) 0.5 (0.0-2.0) % Neut # (Auto) 3.9 (1.8-7.7) th/mm3 Lymph # (Auto) 1.7 (1.0-4.8) th/mm3 [place] # (Auto) 0.6 (0.0-0.9) th/mm3 Eos # (Auto) 0.1 (0.0-0.4) th/mm3 Baso # (Auto) 0.0 (0.0-0.2) th/mm3 WBC Differential . Differential Comment Auto diff final PT 10.9 (9.8-11.6) sec INR 1.1 Ratio APTT 27.8 (24.3-30.1) sec D-Dimer Quant (PE/DVT) 0.58 H (0.00-0.50) mg/L FEU Sodium (136-145) meq/L Potassium (3.5-5.1) meq/L Chloride (98-107) meq/L Carbon Dioxide (21.0-32.0) meq/L Anion Gap (5-15) meq/L BUN (7-18) mg/dL Creatinine (0.50-1.00) mg/dL Estimated GFR (>89) mL/min POC Glucose (68-110) mg/dl Random Glucose (74-106) mg/dL Hemoglobin A1c (4.3-6.0) % Calcium (8.5-10.1) mg/dL Total Bilirubin (0.2-1.0) mg/dL AST (15-37) U/L ALT (10-53) U/L Alkaline Phosphatase (45-117) U/L Troponin I (0.02-0.05) ng/mL Total Protein (6.4-8.2) g/dL Albumin (3.4-5.0) g/dL Triglycerides (42-150) mg/dL Cholesterol (120-200) mg/dL LDL Cholesterol, Calc (0-99) mg/dL HDL Cholesterol (40.0-60.0) mg/dL Cholesterol/HDL Ratio Ratio Urine Color (Yellw/Straw) Urine Clarity (Clear) Urine pH (5.0-8.5) Ur Specific Prince (1.002-1.035) Urine Protein (Neg-Trace) mg/dL Urine Glucose (UA) (Negative) mg/dL Urine Ketones (Negative) mg/dL Urine Occult Blood (Negative) Urine Nitrate (Negative) Urine Bilirubin (Negative) Urine Urobilinogen (Less than 2) mg/dL Ur Leukocyte Esterase (Negative) Urine RBC (0-3) /hpf Urine WBC (0-5) /hpf Ur Squamous Epith Cells (0-5) /hpf Micro UA Comment Ur Microscopic Review Urine Culture Comments Stl C.difficile Tox PCR (Negative) St C. diff Tox Epid 027 (Negative) 06/22/18 06/22/18 06/22/18 Range/Units 15:40 16:00 18:53 WBC (4.0-11.0) th/mm3 RBC (4.00-5.30) mil/mm3 Hgb (11.6-15.3) gm/dL Hct (35.0-46.0) % MCV (80.0-100.0) fL MCH (27.0-34.0) pg MCHC (32.0-36.0) % RDW (11.6-17.2) % Plt Count (150-450) th/mm3 MPV (7.0-11.0) fL Neut % (Auto) (16.0-70.0) % Lymph % (Auto) (9.0-44.0) % [place] % (Auto) (0.0-8.0) % Eos % (Auto) (0.0-4.0) % Baso % (Auto) (0.0-2.0) % Neut # (Auto) (1.8-7.7) th/mm3 Lymph # (Auto) (1.0-4.8) th/mm3 [place] # (Auto) (0.0-0.9) th/mm3 Eos # (Auto) (0.0-0.4) th/mm3 Baso # (Auto) (0.0-0.2) th/mm3 WBC Differential Differential Comment PT (9.8-11.6) sec INR Ratio APTT (24.3-30.1) sec D-Dimer Quant (PE/DVT) (0.00-0.50) mg/L FEU Sodium 145 (136-145) meq/L Potassium 3.7 (3.5-5.1) meq/L Chloride 108 H (98-107) meq/L Carbon Dioxide 28.3 (21.0-32.0) meq/L Anion Gap 9 (5-15) meq/L BUN 12 (7-18) mg/dL Creatinine 0.98 (0.50-1.00) mg/dL Estimated GFR 58 L (>89) mL/min POC Glucose (68-110) mg/dl Random Glucose 89 (74-106) mg/dL Hemoglobin A1c (4.3-6.0) % Calcium 8.9 (8.5-10.1) mg/dL Total Bilirubin 0.4 (0.2-1.0) mg/dL AST 14 L (15-37) U/L ALT 24 (10-53) U/L Alkaline Phosphatase 58 (45-117) U/L Troponin I Less than 0.02 L (0.02-0.05) ng/mL Total Protein 7.6 (6.4-8.2) g/dL Albumin 3.7 (3.4-5.0) g/dL Triglycerides (42-150) mg/dL Cholesterol (120-200) mg/dL LDL Cholesterol, Calc (0-99) mg/dL HDL Cholesterol (40.0-60.0) mg/dL Cholesterol/HDL Ratio Ratio Urine Color Straw (Yellw/Straw) Urine Clarity Clear (Clear) Urine pH 7.0 (5.0-8.5) Ur Specific Prince 1.003 (1.002-1.035) Urine Protein Negative (Neg-Trace) mg/dL Urine Glucose (UA) Negative (Negative) mg/dL Urine Ketones Negative (Negative) mg/dL Urine Occult Blood Negative (Negative) Urine Nitrate Negative (Negative) Urine Bilirubin Negative (Negative) Urine Urobilinogen Less than 2 (Less than 2) mg/dL Ur Leukocyte Esterase Negative (Negative) Urine RBC Less than 1 (0-3) /hpf Urine WBC Less than 1 (0-5) /hpf Ur Squamous Epith Cells <1 (0-5) /hpf Micro UA Comment Culture not ind Ur Microscopic Review Not Reportable Urine Culture Comments Culture not ind Stl C.difficile Tox PCR Negative (Negative) St C. diff Tox Epid 027 Negative (Negative) 06/22/18 06/22/18 06/23/18 Range/Units 18:55 19:20 00:15 WBC (4.0-11.0) th/mm3 RBC (4.00-5.30) mil/mm3 Hgb (11.6-15.3) gm/dL Hct (35.0-46.0) % MCV (80.0-100.0) fL MCH (27.0-34.0) pg MCHC (32.0-36.0) % RDW (11.6-17.2) % Plt Count (150-450) th/mm3 MPV (7.0-11.0) fL Neut % (Auto) (16.0-70.0) % Lymph % (Auto) (9.0-44.0) % [place] % (Auto) (0.0-8.0) % Eos % (Auto) (0.0-4.0) % Baso % (Auto) (0.0-2.0) % Neut # (Auto) (1.8-7.7) th/mm3 Lymph # (Auto) (1.0-4.8) th/mm3 [place] # (Auto) (0.0-0.9) th/mm3 Eos # (Auto) (0.0-0.4) th/mm3 Baso # (Auto) (0.0-0.2) th/mm3 WBC Differential Differential Comment PT 10.9 (9.8-11.6) sec INR 1.1 Ratio APTT (24.3-30.1) sec D-Dimer Quant (PE/DVT) (0.00-0.50) mg/L FEU Sodium (136-145) meq/L Potassium (3.5-5.1) meq/L Chloride (98-107) meq/L Carbon Dioxide (21.0-32.0) meq/L Anion Gap (5-15) meq/L BUN (7-18) mg/dL Creatinine (0.50-1.00) mg/dL Estimated GFR (>89) mL/min POC Glucose (68-110) mg/dl Random Glucose (74-106) mg/dL Hemoglobin A1c (4.3-6.0) % Calcium (8.5-10.1) mg/dL Total Bilirubin (0.2-1.0) mg/dL AST (15-37) U/L ALT (10-53) U/L Alkaline Phosphatase (45-117) U/L Troponin I Less than 0.02 L Less than 0.02 L (0.02-0.05) ng/mL Total Protein (6.4-8.2) g/dL Albumin (3.4-5.0) g/dL Triglycerides (42-150) mg/dL Cholesterol (120-200) mg/dL LDL Cholesterol, Calc (0-99) mg/dL HDL Cholesterol (40.0-60.0) mg/dL Cholesterol/HDL Ratio Ratio Urine Color (Yellw/Straw) Urine Clarity (Clear) Urine pH (5.0-8.5) Ur Specific Prince (1.002-1.035) Urine Protein (Neg-Trace) mg/dL Urine Glucose (UA) (Negative) mg/dL Urine Ketones (Negative) mg/dL Urine Occult Blood (Negative) Urine Nitrate (Negative) Urine Bilirubin (Negative) Urine Urobilinogen (Less than 2) mg/dL Ur Leukocyte Esterase (Negative) Urine RBC (0-3) /hpf Urine WBC (0-5) /hpf Ur Squamous Epith Cells (0-5) /hpf Micro UA Comment Ur Microscopic Review Urine Culture Comments Stl C.difficile Tox PCR (Negative) St C. diff Tox Epid 027 (Negative) 06/23/18 06/23/18 06/23/18 Range/Units 00:20 06:20 06:20 WBC 5.3 (4.0-11.0) th/mm3 RBC 4.96 (4.00-5.30) mil/mm3 Hgb 13.8 (11.6-15.3) gm/dL Hct 42.3 (35.0-46.0) % MCV 85.4 (80.0-100.0) fL MCH 27.8 (27.0-34.0) pg MCHC 32.6 (32.0-36.0) % RDW 14.5 (11.6-17.2) % Plt Count 215 (150-450) th/mm3 MPV 7.8 (7.0-11.0) fL Neut % (Auto) (16.0-70.0) % Lymph % (Auto) (9.0-44.0) % [place] % (Auto) (0.0-8.0) % Eos % (Auto) (0.0-4.0) % Baso % (Auto) (0.0-2.0) % Neut # (Auto) (1.8-7.7) th/mm3 Lymph # (Auto) (1.0-4.8) th/mm3 [place] # (Auto) (0.0-0.9) th/mm3 Eos # (Auto) (0.0-0.4) th/mm3 Baso # (Auto) (0.0-0.2) th/mm3 WBC Differential Differential Comment PT (9.8-11.6) sec INR Ratio APTT 27.3 (24.3-30.1) sec D-Dimer Quant (PE/DVT) (0.00-0.50) mg/L FEU Sodium (136-145) meq/L Potassium (3.5-5.1) meq/L Chloride (98-107) meq/L Carbon Dioxide (21.0-32.0) meq/L Anion Gap (5-15) meq/L BUN (7-18) mg/dL Creatinine (0.50-1.00) mg/dL Estimated GFR (>89) mL/min POC Glucose (68-110) mg/dl Random Glucose (74-106) mg/dL Hemoglobin A1c 6.0 (4.3-6.0) % Calcium (8.5-10.1) mg/dL Total Bilirubin (0.2-1.0) mg/dL AST (15-37) U/L ALT (10-53) U/L Alkaline Phosphatase (45-117) U/L Troponin I (0.02-0.05) ng/mL Total Protein (6.4-8.2) g/dL Albumin (3.4-5.0) g/dL Triglycerides (42-150) mg/dL Cholesterol (120-200) mg/dL LDL Cholesterol, Calc (0-99) mg/dL HDL Cholesterol (40.0-60.0) mg/dL Cholesterol/HDL Ratio Ratio Urine Color (Yellw/Straw) Urine Clarity (Clear) Urine pH (5.0-8.5) Ur Specific [place] (1.002-1.035) Urine Protein (Neg-Trace) mg/dL Urine Glucose (UA) (Negative) mg/dL Urine Ketones (Negative) mg/dL Urine Occult Blood (Negative) Urine Nitrate (Negative) Urine Bilirubin (Negative) Urine Urobilinogen (Less than 2) mg/dL Ur Leukocyte Esterase (Negative) Urine RBC (0-3) /hpf Urine WBC (0-5) /hpf Ur Squamous Epith Cells (0-5) /hpf Micro UA Comment Ur Microscopic Review Urine Culture Comments Stl C.difficile Tox PCR (Negative) St C. diff Tox Epid 027 (Negative) 06/23/18 06/23/18 06/23/18 Range/Units 06:20 13:51 14:22 WBC (4.0-11.0) th/mm3 RBC (4.00-5.30) mil/mm3 Hgb (11.6-15.3) gm/dL Hct (35.0-46.0) % MCV (80.0-100.0) fL MCH (27.0-34.0) pg MCHC (32.0-36.0) % RDW (11.6-17.2) % Plt Count (150-450) th/mm3 MPV (7.0-11.0) fL Neut % (Auto) (16.0-70.0) % Lymph % (Auto) (9.0-44.0) % [place] % (Auto) (0.0-8.0) % Eos % (Auto) (0.0-4.0) % Baso % (Auto) (0.0-2.0) % Neut # (Auto) (1.8-7.7) th/mm3 Lymph # (Auto) (1.0-4.8) th/mm3 [place] # (Auto) (0.0-0.9) th/mm3 Eos # (Auto) (0.0-0.4) th/mm3 Baso # (Auto) (0.0-0.2) th/mm3 WBC Differential Differential Comment PT (9.8-11.6) sec INR Ratio APTT (24.3-30.1) sec D-Dimer Quant (PE/DVT) (0.00-0.50) mg/L FEU Sodium (136-145) meq/L Potassium (3.5-5.1) meq/L Chloride (98-107) meq/L Carbon Dioxide (21.0-32.0) meq/L Anion Gap (5-15) meq/L BUN (7-18) mg/dL Creatinine (0.50-1.00) mg/dL Estimated GFR (>89) mL/min POC Glucose 67 L 85 (68-110) mg/dl Random Glucose (74-106) mg/dL Hemoglobin A1c (4.3-6.0) % Calcium (8.5-10.1) mg/dL Total Bilirubin (0.2-1.0) mg/dL AST (15-37) U/L ALT (10-53) U/L Alkaline Phosphatase (45-117) U/L Troponin I (0.02-0.05) ng/mL Total Protein (6.4-8.2) g/dL Albumin (3.4-5.0) g/dL Triglycerides 61 (42-150) mg/dL Cholesterol 150 (120-200) mg/dL LDL Cholesterol, Calc 96 (0-99) mg/dL HDL Cholesterol 41.6 (40.0-60.0) mg/dL Cholesterol/HDL Ratio 3.60 Ratio Urine Color (Yellw/Straw) Urine Clarity (Clear) Urine pH (5.0-8.5) Ur Specific [place] (1.002-1.035) Urine Protein (Neg-Trace) mg/dL Urine Glucose (UA) (Negative) mg/dL Urine Ketones (Negative) mg/dL Urine Occult Blood (Negative) Urine Nitrate (Negative) Urine Bilirubin (Negative) Urine Urobilinogen (Less than 2) mg/dL Ur Leukocyte Esterase (Negative) Urine RBC (0-3) /hpf Urine WBC (0-5) /hpf Ur Squamous Epith Cells (0-5) /hpf Micro UA Comment Ur Microscopic Review Urine Culture Comments Stl C.difficile Tox PCR (Negative) St C. diff Tox Epid 027 (Negative) 06/23/18 06/24/18 06/24/18 Range/Units 20:29 03:45 03:45 WBC 5.5 (4.0-11.0) th/mm3 RBC 4.72 (4.00-5.30) mil/mm3 Hgb 13.2 (11.6-15.3) gm/dL Hct 39.5 (35.0-46.0) % MCV 83.8 (80.0-100.0) fL MCH 28.0 (27.0-34.0) pg MCHC 33.4 (32.0-36.0) % RDW 14.1 (11.6-17.2) % Plt Count 214 (150-450) th/mm3 MPV 7.9 (7.0-11.0) fL Neut % (Auto) (16.0-70.0) % Lymph % (Auto) (9.0-44.0) % [place] % (Auto) (0.0-8.0) % Eos % (Auto) (0.0-4.0) % Baso % (Auto) (0.0-2.0) % Neut # (Auto) (1.8-7.7) th/mm3 Lymph # (Auto) (1.0-4.8) th/mm3 [place] # (Auto) (0.0-0.9) th/mm3 Eos # (Auto) (0.0-0.4) th/mm3 Baso # (Auto) (0.0-0.2) th/mm3 WBC Differential Differential Comment PT (9.8-11.6) sec INR Ratio APTT 33.5 H D 38.2 H (24.3-30.1) sec D-Dimer Quant (PE/DVT) (0.00-0.50) mg/L FEU Sodium (136-145) meq/L Potassium (3.5-5.1) meq/L Chloride (98-107) meq/L Carbon Dioxide (21.0-32.0) meq/L Anion Gap (5-15) meq/L BUN (7-18) mg/dL Creatinine (0.50-1.00) mg/dL Estimated GFR (>89) mL/min POC Glucose (68-110) mg/dl Random Glucose (74-106) mg/dL Hemoglobin A1c (4.3-6.0) % Calcium (8.5-10.1) mg/dL Total Bilirubin (0.2-1.0) mg/dL AST (15-37) U/L ALT (10-53) U/L Alkaline Phosphatase (45-117) U/L Troponin I (0.02-0.05) ng/mL Total Protein (6.4-8.2) g/dL Albumin (3.4-5.0) g/dL Triglycerides (42-150) mg/dL Cholesterol (120-200) mg/dL LDL Cholesterol, Calc (0-99) mg/dL HDL Cholesterol (40.0-60.0) mg/dL Cholesterol/HDL Ratio Ratio Urine Color (Yellw/Straw) Urine Clarity (Clear) Urine pH (5.0-8.5) Ur Specific [place] (1.002-1.035) Urine Protein (Neg-Trace) mg/dL Urine Glucose (UA) (Negative) mg/dL Urine Ketones (Negative) mg/dL Urine Occult Blood (Negative) Urine Nitrate (Negative) Urine Bilirubin (Negative) Urine Urobilinogen (Less than 2) mg/dL Ur Leukocyte Esterase (Negative) Urine RBC (0-3) /hpf Urine WBC (0-5) /hpf Ur Squamous Epith Cells (0-5) /hpf Micro UA Comment Ur Microscopic Review Urine Culture Comments Stl C.difficile Tox PCR (Negative) St C. diff Tox Epid 027 (Negative) 06/24/18 06/24/18 06/24/18 Range/Units 10:21 10:47 11:22 WBC (4.0-11.0) th/mm3 RBC (4.00-5.30) mil/mm3 Hgb (11.6-15.3) gm/dL Hct (35.0-46.0) % MCV (80.0-100.0) fL MCH (27.0-34.0) pg MCHC (32.0-36.0) % RDW (11.6-17.2) % Plt Count (150-450) th/mm3 MPV (7.0-11.0) fL Neut % (Auto) (16.0-70.0) % Lymph % (Auto) (9.0-44.0) % [place] % (Auto) (0.0-8.0) % Eos % (Auto) (0.0-4.0) % Baso % (Auto) (0.0-2.0) % Neut # (Auto) (1.8-7.7) th/mm3 Lymph # (Auto) (1.0-4.8) th/mm3 [place] # (Auto) (0.0-0.9) th/mm3 Eos # (Auto) (0.0-0.4) th/mm3 Baso # (Auto) (0.0-0.2) th/mm3 WBC Differential Differential Comment PT (9.8-11.6) sec INR Ratio APTT 46.9 H D (24.3-30.1) sec D-Dimer Quant (PE/DVT) (0.00-0.50) mg/L FEU Sodium (136-145) meq/L Potassium (3.5-5.1) meq/L Chloride (98-107) meq/L Carbon Dioxide (21.0-32.0) meq/L Anion Gap (5-15) meq/L BUN (7-18) mg/dL Creatinine (0.50-1.00) mg/dL Estimated GFR (>89) mL/min POC Glucose 73 122 H (68-110) mg/dl Random Glucose (74-106) mg/dL Hemoglobin A1c (4.3-6.0) % Calcium (8.5-10.1) mg/dL Total Bilirubin (0.2-1.0) mg/dL AST (15-37) U/L ALT (10-53) U/L Alkaline Phosphatase (45-117) U/L Troponin I (0.02-0.05) ng/mL Total Protein (6.4-8.2) g/dL Albumin (3.4-5.0) g/dL Triglycerides (42-150) mg/dL Cholesterol (120-200) mg/dL LDL Cholesterol, Calc (0-99) mg/dL HDL Cholesterol (40.0-60.0) mg/dL Cholesterol/HDL Ratio Ratio Urine Color (Yellw/Straw) Urine Clarity (Clear) Urine pH (5.0-8.5) Ur Specific Prince (1.002-1.035) Urine Protein (Neg-Trace) mg/dL Urine Glucose (UA) (Negative) mg/dL Urine Ketones (Negative) mg/dL Urine Occult Blood (Negative) Urine Nitrate (Negative) Urine Bilirubin (Negative) Urine Urobilinogen (Less than 2) mg/dL Ur Leukocyte Esterase (Negative) Urine RBC (0-3) /hpf Urine WBC (0-5) /hpf Ur Squamous Epith Cells (0-5) /hpf Micro UA Comment Ur Microscopic Review Urine Culture Comments Stl C.difficile Tox PCR (Negative) St C. diff Tox Epid 027 (Negative) 06/24/18 06/25/18 Range/Units 17:15 06:13 WBC (4.0-11.0) th/mm3 RBC (4.00-5.30) mil/mm3 Hgb (11.6-15.3) gm/dL Hct (35.0-46.0) % MCV (80.0-100.0) fL MCH (27.0-34.0) pg MCHC (32.0-36.0) % RDW (11.6-17.2) % Plt Count (150-450) th/mm3 MPV (7.0-11.0) fL Neut % (Auto) (16.0-70.0) % Lymph % (Auto) (9.0-44.0) % [place] % (Auto) (0.0-8.0) % Eos % (Auto) (0.0-4.0) % Baso % (Auto) (0.0-2.0) % Neut # (Auto) (1.8-7.7) th/mm3 Lymph # (Auto) (1.0-4.8) th/mm3 [place] # (Auto) (0.0-0.9) th/mm3 Eos # (Auto) (0.0-0.4) th/mm3 Baso # (Auto) (0.0-0.2) th/mm3 WBC Differential Differential Comment PT (9.8-11.6) sec INR Ratio APTT 44.0 H 45.7 H (24.3-30.1) sec D-Dimer Quant (PE/DVT) (0.00-0.50) mg/L FEU Sodium (136-145) meq/L Potassium (3.5-5.1) meq/L Chloride (98-107) meq/L Carbon Dioxide (21.0-32.0) meq/L Anion Gap (5-15) meq/L BUN (7-18) mg/dL Creatinine (0.50-1.00) mg/dL Estimated GFR (>89) mL/min POC Glucose (68-110) mg/dl Random Glucose (74-106) mg/dL Hemoglobin A1c (4.3-6.0) % Calcium (8.5-10.1) mg/dL Total Bilirubin (0.2-1.0) mg/dL AST (15-37) U/L ALT (10-53) U/L Alkaline Phosphatase (45-117) U/L Troponin I (0.02-0.05) ng/mL Total Protein (6.4-8.2) g/dL Albumin (3.4-5.0) g/dL Triglycerides (42-150) mg/dL Cholesterol (120-200) mg/dL LDL Cholesterol, Calc (0-99) mg/dL HDL Cholesterol (40.0-60.0) mg/dL Cholesterol/HDL Ratio Ratio Urine Color (Yellw/Straw) Urine Clarity (Clear) Urine pH (5.0-8.5) Ur Specific [place] (1.002-1.035) Urine Protein (Neg-Trace) mg/dL Urine Glucose (UA) (Negative) mg/dL Urine Ketones (Negative) mg/dL Urine Occult Blood (Negative) Urine Nitrate (Negative) Urine Bilirubin (Negative) Urine Urobilinogen (Less than 2) mg/dL Ur Leukocyte Esterase (Negative) Urine RBC (0-3) /hpf Urine WBC (0-5) /hpf Ur Squamous Epith Cells (0-5) /hpf Micro UA Comment Ur Microscopic Review Urine Culture Comments Stl C.difficile Tox PCR (Negative) St C. diff Tox Epid 027 (Negative) Imaging Data Radiologist's impression: Abdomen X-Ray 06/22/18 00:00 CONCLUSION: Nonspecific, nonobstructive bowel gas pattern. Chest X-Ray 06/22/18 15:33 CONCLUSION: Stable mild prominence of the cardiac silhouette. No focal consolidation. Discharge Plan Discharge Disposition Patient Disposition: 30 Still Patient Discharge Condition Condition: Stable Discharge Details Diagnosis: Angina of effort, Diarrhea Physicians Team ED Provider: Brenda Sims ED Midlevel Provider: Alma Rosa Ricardo Primary Care Provider: UNKNOWN, Attending Provider: Ronnie Khan Other Providers: Kofi Morgan Status ED Status: Left Department Discharge Information Discharge Date/Time: 06/22/18 20:31
[2018-06-22] MEDS ORDERED: Sod Chloride 0.9% Inj 1,000 ML IV.SIG SCH (15:45)
[2018-06-22 15:59] LABS: Baso % (Auto) 0.5 % (0.0-2.0); Eos # (Auto) 0.1 th/mm3 (0.0-0.4); Eos % (Auto) 1.8 % (0.0-4.0); Hematocrit 45.6 % (35.0-46.0); Hemoglobin 14.6 gm/dL (11.6-15.3); Lymph # (Auto) 1.7 th/mm3 (1.0-4.8); Lymph % (Auto) 27.5 % (9.0-44.0); Mean Corpuscular HGB Conc 32.1 % (32.0-36.0); Mean Corpuscular Hemoglobin 27.4 pg (27.0-34.0); Mean Corpuscular Volume 85.1 fL (80.0-100.0); Mean Platelet Volume 7.6 fL (7.0-11.0); Mono # (Auto) 0.6 th/mm3 (0.0-0.9); Mono % (Auto) 9.4 % (0.0-8.0); Neut # (Auto) 3.9 th/mm3 (1.8-7.7); Neut % (Auto) 60.8 % (16.0-70.0); Platelet Count 258 th/mm3 (150-450); Red Blood Count 5.36 mil/mm3 (4.00-5.30); Red Cell Distribution Width 14.3 % (11.6-17.2); White Blood Count 6.4 th/mm3 (4.0-11.0)
[2018-06-22 16:17] LABS: Activated Partial Thrombo Time 27.8 sec (24.3-30.1); INR 1.1 Ratio; Prothrombin Time 10.9 sec (9.8-11.6)
[2018-06-22 16:24] LABS: Bilirubin,Urine Negative (Negative); Clarity,Urine Clear (Clear); Color,Urine Straw (Yellw/Straw); Glucose,Urine (UA) Negative (Negative); Leukocyte Esterase,Urine Negative (Negative); Nitrite,Urine Negative (Negative); Specific Gravity,Urine 1.003 (1.002-1.035); Squamous Epithelial Cell,Urine <1 /hpf (0-5)
[2018-06-22 16:29] LABS: Alanine Aminotransferase 24 U/L (10-53); Albumin 3.7 g/dL (3.4-5.0); Anion Gap 9 meq/L (5-15); Aspartate Aminotransferase 14 U/L (15-37); Blood Urea Nitrogen 12 mg/dL (7-18); Calcium 8.9 mg/dL (8.5-10.1); Carbon Dioxide 28.3 meq/L (21.0-32.0); Chloride 108 meq/L (98-107); Glomerular Filtration Rate 58 mL/min (>89); Glucose,Random 89 mg/dL (74-106); Potassium 3.7 meq/L (3.5-5.1); Sodium 145 meq/L (136-145)
[2018-06-22 16:33] LABS: Alkaline Phosphatase 58 U/L (45-117); Total Protein 7.6 g/dL (6.4-8.2)
--- NOTE | 2018-06-22 16:34 | XR ---
EXAM DATE: 06/22/2018 4:27 PM EDT AGE/SEX: 63 years / Female INDICATIONS: Chest pain. CLINICAL DATA: This is the patient's initial encounter. Patient reports that signs and symptoms have been present for 1 day and indicates a pain score of 4/10. MEDICAL/SURGICAL HISTORY: . Arthritis. Cardiovascular disease Lupus. CVA . Appendectomy. Hyst erectomy. COMPARISON: [facility] – [place], CHEST SINGLE AP, 10/13/2017. . FINDINGS: A single AP view of the chest demonstrates the lungs to be symmetrically aerated without evidence of mass, focal consolidation, or effusion. No appreciable pneumothorax. Improved aeration of the lung ba ses compared to prior exam. Stable mild prominence of the cardiac silhouette. Degenerative changes of the spine. CONCLUSION: Stable mild prominence of the cardiac silhouette. No focal consolidation. Electronically signed by: Rach Garrido MD 06/22/2018 4:33 PM EDT
[2018-06-22] MEDS ORDERED: Bisacodyl 10 MG Supp RECTAL PRN (18:07)
[2018-06-22] MEDS ORDERED: Morphine Inj 4 MG/ML Vial IV.PUSH PRN (18:55)
[2018-06-22] MEDS ORDERED: Sod Chloride 0.9% Inj 1,000 ML IV.CONT SCH (18:58)
[2018-06-22] MEDS ORDERED: KCL 20 mEq/D5W/NaCl 0.45% Inj 1,000 ML IV.CONT SCH (19:00)
--- NOTE | 2018-06-22 19:24 | P.HPIM ---
History of Present Illness Primary Care Physician: UNKNOWN History of Present Illness: This is a 63-year-old female with a PMH of A. fib, Chronic Bradycardia and GERD who presented to the ER w/ complaints of chest pain, SOB and palpitations starting earlier today. States she follows w/ both Dr. East locally and with her Channel Program Manager at [place], has been on Eliquis for several years, but was recently switched to Xarelto due to complaints of abdominal distention, has been off all anticoagulation x2 days as she has not started Xarelto as of yet. Today, states she has episode of severe SOB, palpitations and chest pain when she got up to take her son to the doctor, states "I couldn't even walk". Notes multiple episodes of "my heart flip flopping every time I get up to walk". Denies fever, chills or cough. Also notes ongoing abdominal distention since April 2018, has been following w/ PCP at [facility], believes she was referred for CT Abd/Pelvis as outpatient, however has contrast allergy and needs premedication. Notes episodes of nausea/vomiting at the start of symptoms in April, however no symptoms since then. Today, did note few episodes of non- bloody diarrhea, otherwise bowel movements have been normal. Taking Mylanta w/ minimal relief. On arrival, BP 141/61, HR 48, O2 sat 100% on RA. CBC unremarkable. INR 1.1. Chemistry essentially unremarkable except for GFR 58. Troponin negative. UA negative. C. difficile pending. CXR was stable prominence of cardiac silhouette, no focal consolidation. EKG with bradycardia , no acute ischemia. While in the ER, pt was noted to have episode of possible A-flutter by ER PA, HR reportedly 40-60's. Currently chest pain free. - Diagnosis (1) Chest pain (2) A-fib (3) Abdominal distension (4) Bradycardia Review of Systems PAST FAMILY HISTORY: Reviewed. No h/o DM or CAD All other systems reviewed negative except as stated in HPI PMFSH - History History Provided By: Patient - Medical History Medical History: Medical History (Last Updated 06/22/18 @ 15:24 by Catalina Kenny) Afib GERD (gastroesophageal reflux disease) H/O: hysterectomy Hx of detention use of blood thinners - Surgical History Surgical History: Surgical History (Last Updated 06/22/18 @ 15:24 by Catalina Kenny) History of tonsillectomy S/P appy - Tobacco History Smoking Status: Never smoker - Alcohol History How Often Do You Have a Drink Containing Alcohol: Never - Substance Use History Substance History: No History of Abuse - Travel History Recent Travel in the [place] Within the Last 8 Weeks: No Recent Travel Out of the Country Within the Last 8 Weeks: No - Immunization History Tetanus Immunization: Unsure Hx Influenza Vaccine This Season: No Medications and Allergies Active Medications: Active Medications Al Hydroxide/Mg Hydroxide (Milk Of Magnesia Liq) 30 ml PO Q12H PRN PRN Reason: Mild Constipation Bisacodyl (Dulcolax Supp) 10 mg RECTAL DAILY PRN PRN Reason: SEVERE CONSITIPATION Heparin Sodium (Porcine) (Heparin Inj) 4,000 units IV.PUSH NOW STA Stop: 06/22/18 18:14 Sodium Chloride (Ns Inj) 1,000 mls @ 0 mls/hr IV.SIG BOLUS MARGI Heparin Sodium/Dextrose (Heparin/D5w 25,000 U/250 Ml) 25,000 unit in 250 mls @ 0 mls/hr IV.CONT TITRATE PRN; Protocol PRN Reason: Per Protocol Sodium Chloride (Ns Inj) 1,000 mls @ 100 mls/hr IV.CONT .Q10H MARGI Last Admin: 06/22/18 19:17 Dose: 100 mls/hr Lactulose (Lactulose Liq) 30 ml PO DAILY PRN PRN Reason: SEVERE CONSITIPATION Morphine Sulfate (Morphine Inj) 2 mg IV.PUSH Q4H PRN PRN Reason: PAIN 6-10 Pantoprazole Sodium (Protonix) 40 mg PO ONCE ONE Stop: 06/22/18 18:56 Sennosides (Senokot) 17.2 mg PO Q12H PRN PRN Reason: Moderate Constipation Sodium Chloride (Ns Flush) 2 ml IV.FLUSH UNSCH PRN PRN Reason: FLUSH AFTER USING IV ACCESS Allergies Allergy/AdvReac Type Severity Reaction Status Date / Time acebutolol Allergy Severe DECREASED Verified 06/22/18 15:14 HEART RATE aspirin Allergy Severe RESPIRATORY/GASTRO Verified 06/22/18 15:14 DISTRESS atenolol Allergy Severe DECREASED Verified 06/22/18 15:14 HEART RATE betaxolol Allergy Severe DECREASED Verified 06/22/18 15:14 HEART RATE caffeine Allergy Severe Seizures Verified 06/22/18 15:14 carvedilol Allergy Severe DECREASED Verified 06/22/18 15:14 HEART RATE diatrizoate meglumine Allergy Severe Anaphylaxis Verified 06/22/18 15:14 gadobenic acid Allergy Severe Anaphylaxis Verified 06/22/18 15:14 gadodiamide Allergy Severe Anaphylaxis Verified 06/22/18 15:14 gadoteridol Allergy Severe Anaphylaxis Verified 06/22/18 15:14 Iodinated Contrast- Oral and Allergy Severe Atrial Verified 06/22/18 15:14 IV Dye Fibrillation iodixanol Allergy Severe Anaphylaxis Verified 06/22/18 15:14 iohexol Allergy Severe Anaphylaxis Verified 06/22/18 15:14 labetalol Allergy Severe DECREASED Verified 06/22/18 15:14 HEART RATE lidocaine Allergy Severe Anaphylaxis Verified 06/22/18 15:14 metoprolol Allergy Severe DECREASED Verified 06/22/18 15:14 HEART RATE nebivolol Allergy Severe DECREASED Verified 06/22/18 15:14 HEART RATE pindolol Allergy Severe DECREASED Verified 06/22/18 15:14 HEART RATE propranolol Allergy Severe DECREASED Verified 06/22/18 15:14 HEART RATE pseudoephedrine Allergy Severe SUSTAINED Verified 06/22/18 15:14 ATRIAL FIB sotalol Allergy Severe DECREASED Verified 06/22/18 15:14 HEART RATE timolol Allergy Severe DECREASED Verified 06/22/18 15:14 HEART RATE cefuroxime Allergy Unknown unknown Verified 06/22/18 15:14 doxycycline Allergy Unknown unknown Verified 06/22/18 15:14 decongestants AdvReac Severe AFib Uncoded 06/22/18 15:14 Home Medications Medication Instructions Recorded Confirmed Type rivaroxaban [Xarelto] 20 mg PO DAILY 06/22/18 06/22/18 History Exam Vital signs: Vital Signs 06/22/18 15:14 06/22/18 15:31 06/22/18 15:38 Pulse Rate 48 L 47 L Respiratory Rate 12 16 Blood Pressure 141/61 H 123/60 Pulse Oximetry 100 99 99 06/22/18 18:48 Pulse Rate 48 L Respiratory Rate 17 Blood Pressure 164/71 H Pulse Oximetry 98 Intake & Output 06/22/18 06/22/18 06/23/18 06:59 18:59 06:59 Weight 113.398 kg Narrative: PE: GENERAL: Very pleasant middle-aged white female in no acute distress. Daughter at bedside. SKIN: Focused skin assessment warm and dry. HEENT: PERRLA, EOMI. No scleral icterus or conjunctival pallor. No lid lag or facial droop. CARDIOVASCULAR: Regular rhythm, bradycardia. No obvious murmurs to auscultation. No chest tenderness to palpation. RESPIRATORY: No obvious rhonchi or wheezing. Clear to auscultation. Breath sounds equal bilaterally. GASTROINTESTINAL: Abdomen distended but soft, no tenderness to palpation. BS normal. MUSCULOSKELETAL: Extremities without clubbing, cyanosis, or edema. No obvious deformities. NEUROLOGICAL: Awake, alert and oriented x4. No focal neurologic deficits. Moving both upper and lower extremities spontaneously. PSYCHIATRIC: Appropriate mood and affect. Insight and judgment normal. Results - Labs CBC & Chem 7: 06/22/18 15:40 06/22/18 15:40 Labs: Short CBC 06/22/18 Range/Units 15:40 WBC 6.4 (4.0-11.0) th/mm3 Hgb 14.6 (11.6-15.3) gm/dL Hct 45.6 (35.0-46.0) % Plt Count 258 (150-450) th/mm3 BMP 06/22/18 15:40 Sodium 145 Potassium 3.7 Chloride 108 H Carbon Dioxide 28.3 BUN 12 Creatinine 0.98 Calcium 8.9 Cardiac Enzymes 06/22/18 Range/Units 15:40 Troponin I Less than 0.02 L (0.02-0.05) ng/mL Liver Function 06/22/18 Range/Units 15:40 Total Bilirubin 0.4 (0.2-1.0) mg/dL AST 14 L (15-37) U/L ALT 24 (10-53) U/L Alkaline Phosphatase 58 (45-117) U/L Albumin 3.7 (3.4-5.0) g/dL Urine 06/22/18 Range/Units 16:00 Urine Color Straw (Yellw/Straw) Urine Clarity Clear (Clear) Urine pH 7.0 (5.0-8.5) Ur Specific [place] 1.003 (1.002-1.035) Urine Protein Negative (Neg-Trace) mg/dL Urine Glucose (UA) Negative (Negative) mg/dL - Imaging Impressions Chest X-Ray 06/22/18 15:33 CONCLUSION: Stable mild prominence of the cardiac silhouette. No focal consolidation. Caprini VTE Risk Assessment Caprini VTE Risk Assessment: No/Low Risk (score <= 1) Caprini Risk Assessment Model: Point Value = 1 Point Value = 2 Point Value = 3 Point Value = 5 Age 41-60 Minor surgery BMI > 25 kg/m2 Swollen legs Varicose veins or History of unexplained or recurrent spontaneous Oral contraceptives or hormone replacement Sepsis (< 1 month) Serious lung disease, including pneumonia (< 1 month) Abnormal pulmonary function Acute myocardial infarction Congestive heart failure (< 1 month) History of inflammatory bowel disease Medical patient at bed rest Age 61-74 Arthroscopic surgery Major open surgery (> 45 min) Laparoscopic surgery (> 45 min) Malignancy Confined to bed (> 72 hours) Immobilizing plaster cast Central venous access Age >= 75 History of VTE Family history of VTE Factor V Leiden Prothrombin [id number] Lupus anticoagulant Anticardiolipin antibodies Elevated serum homocysteine Heparin-induced thrombocytopenia Other congenital or acquired thrombophilia Stroke (< 1 month) Elective arthroplasty Hip, pelvis, or leg fracture Acute spinal cord injury (< 1 month) Prophylaxis Regimen: Total Risk Factor Score Risk Level Prophylaxis Regimen 0-1 Low Early ambulation 2 Moderate Order ONE of the following: *Sequential Compression Device (SCD) *Heparin 5000 units SQ BID 3-4 Higher Order ONE of the following medications: *Heparin 5000 units SQ TID *Enoxaparin/Lovenox 40 mg SQ daily (WT < 150 kg, CrCl > 30 mL/min) *Enoxaparin/Lovenox 30 mg SQ daily (WT < 150 kg, CrCl > 10-29 mL/min) *Enoxaparin/Lovenox 30 mg SQ BID (WT < 150 kg, CrCl > 30 mL/min) AND/OR *Sequential Compression Device (SCD) 5 or more Highest Order ONE of the following medications: *Heparin 5000 units SQ TID (Preferred with Epidurals) *Enoxaparin/Lovenox 40 mg SQ daily (WT < 150 kg, CrCl > 30 mL/min) *Enoxaparin/Lovenox 30 mg SQ daily (WT < 150 kg, CrCl > 10-29 mL/min) *Enoxaparin/Lovenox 30 mg SQ BID (WT < 150 kg, CrCl > 30 mL/min) AND *Sequential Compression Device (SCD) Assessment and Plan - Assessment (1) Chest pain Code(s): R07.9 - Chest pain, unspecified Status: Acute (2) A-fib Code(s): I48.91 - Unspecified atrial fibrillation Status: Acute (3) Abdominal distension Code(s): R14.0 - Abdominal distension (gaseous) Status: Acute (4) Bradycardia Code(s): R00.1 - Bradycardia, unspecified Status: Acute - Plan A/P: 1. Chest Pain: w/ exertion, associated w/ SOB and palpitations, initial trop negative, EKG w/ no acute ischemia. Admit for Observation, telemetry, check serial cardiac enzymes, check Lipid Profile, Hgb A1c, no ASA due to ALLERGY, hold B-yuliya due to bradycardia. Start Statin. Morphine prn. 2. A-fib: h/o Paroxysmal A-fib, previously on Eliquis, recently switched to Xarelto for c/o abdominal distention, however off all anticoagulation x2 days, started on Heparin gtt, will continue w/ Heparin for now, questionable episode of A-flutter while in ER, continue w/ Telemetry, check Echo to eval for valvular abnormalities/cardiomyopathy. Follows w/ Channel Program Manager at [facility] and w / Dr. East, will consult for further eval/recommendations. 3. Abdominal Distention: ongoing since April, notes normal BM except for few episodes of diarrhea today, no nausea/vomiting. C Diff pending. LFTs normal. Follows w/ PCP at [facility], believes she was referred for CT Abd/Pelvis as outpatient, complicated by contrast ALLERGY, will need premedication. Will check KUB to eval for possible obstruction/ileus, although unlikely in light of length of symptoms. Protonix IV, Mylanta prn. Recommend outpatient follow up w / GI for further work up. 4. Bradycardia: Chronic. Per review of vitals back to 2014, pt w/ chronic bradycardia 40-50's, hold B-yuliya, telemetry. Consult Dr. East for further eval as above. 5. DVT Prophylaxis: Heparin gtt 6. Social work for d/c planning as needed 7. Case discussed w/ ER physician at length, labs/records/imaging reviewed by me.
[2018-06-22 19:26] LABS: INR 1.1 Ratio; Prothrombin Time 10.9 sec (9.8-11.6)
[2018-06-22] MEDS ORDERED: Heparin 10,000 UNITS/10 ML Vial (for IV use) IV.PUSH STA (20:00)
--- NOTE | 2018-06-22 20:29 | XR ---
EXAM DATE: 06/22/2018 8:26 PM EDT AGE/SEX: 63 years / Female INDICATIONS: Diffuse abdomen pain CLINICAL DATA: This is the patient's initial encounter. Patient reports that signs and symptoms have been present for 2 months and indicates a pain score of 1/10. MEDICAL/SURGICAL HISTORY: . Cardiovascular disease. Hypertension. Gastroesophageal reflux disea se. Lupus . Hysterectomy. Abdominal tumor removed COMPARISON: . FINDINGS: There is an overall paucity of bowel gas. I don't see any distention. No free air. No evidence of or ganomegaly. CONCLUSION: Nonspecific, nonobstructive bowel gas pattern. Electronically signed by: Shahzad Rizzo MD 06/22/2018 8:28 PM EDT
[2018-06-22] MEDS: Sod Chloride 0.9% Inj 1,000 ML IV.CONT SCH (21:17)
[2018-06-23] MEDS: Sod Chloride 0.9% Inj 1,000 ML IV.CONT SCH ×2 (06:21→16:11)
[2018-06-23 07:19] LABS: Hematocrit 42.3 % (35.0-46.0); Hemoglobin 13.8 gm/dL (11.6-15.3); Mean Corpuscular HGB Conc 32.6 % (32.0-36.0); Mean Corpuscular Hemoglobin 27.8 pg (27.0-34.0); Mean Corpuscular Volume 85.4 fL (80.0-100.0); Mean Platelet Volume 7.8 fL (7.0-11.0); Platelet Count 215 th/mm3 (150-450); Red Blood Count 4.96 mil/mm3 (4.00-5.30); Red Cell Distribution Width 14.5 % (11.6-17.2); White Blood Count 5.3 th/mm3 (4.0-11.0)
[2018-06-23 07:45] LABS: Chol/HDL Ratio 3.6 Ratio; HDL Cholesterol 41.6 mg/dL (40.0-60.0)
[2018-06-23] MEDS: Pantoprazole Inj 40 MG Vial IV.PUSH SCH ×2 (08:23→21:41)
[2018-06-23] MEDS: Aluminum/Magnesium/Simethacone Susp 30 ML UDC PO PRN ×2 (08:33→23:28)
[2018-06-23] MEDS: Heparin Drip 25,000 UNIT/250 ML BAG IV.CONT PRN ×2 (09:59→14:41)
--- NOTE | 2018-06-23 12:00 | ECG ---
Date Performed: 06/23/2018 Time Performed: 00:18:20 PTAGE: 63 years EKG: SINUS BRADYCARDIA BORDERLINE LEFT AXIS DEVIATION NONSPECIFIC T-WAVE ABNORMALITY BORDERLINE ECG PREVIOUS TRACING : 06/22/2018 19.50 DOCTOR: Yudi Coles Interpretating Date/Time 06/23/2018 11:57:10
--- NOTE | 2018-06-23 12:43 | ECHRPT ---
Indication: A-FIB CONCLUSIONS The left ventricular systolic function is normal with an estimated ejection fraction in the range of 60-65%. Normal left ventricular size. Wall thickness is normal. No regional wall motion abnormalities are present. Trace mitral valve regurgitation. BP: / HR: Rhythm: Atrial fibrillation MEASUREMENTS (Male / Female) Normal Values Technical Quality:Excellent 2D ECHO LV Diastolic Diameter PLAX 4.7 cm 4.2 - 5.9 / 3.9 - 5.3 cm LV Systolic Diameter PLAX 3.2 cm IVS Diastolic Thickness 1.1 cm 0.6 - 1.0 / 0.6 - 0.9 cm LVPW Diastolic Thickness 1.1 cm 0.6 - 1.0 / 0.6 - 0.9 cm LV Relative Wall Thickness 0.5 RV Internal Dim ED PLAX 3.2 cm LVOT Diameter 2.2 cm LA Systolic Diameter LX 3.9 cm 3.0 - 4.0 / 2.7 - 3.8 cm LV Ejection Fraction MOD 4C 63.2 % LV Ejection Fraction 4C AL 65.3 % M-MODE Aortic Root Diameter MM 2.5 cm LA Systolic Diameter MM 3.5 cm LA Ao Ratio MM 1.4 AV Cusp Separation MM 1.9 cm DOPPLER AV Peak Velocity 122.0 cm/s AV Peak Gradient 6.0 mmHg LVOT Peak Velocity 118.0 cm/s LVOT Peak Gradient 5.6 mmHg AV Area Cont Eq pk 3.7 cm MV Area PHT 3.6 cm Mitral E Point Velocity 97.7 cm/s Mitral A Point Velocity 74.0 cm/s Mitral E to A Ratio 1.3 LV E' Lateral Velocity 10.0 cm/s Mitral E to LV E' Lateral Ratio 9.8 FINDINGS LEFT VENTRICLE The left ventricular systolic function is normal with an estimated ejection fraction in the range of 60-65%. Normal left ventricular size. Wall thickness is normal. No regional wall motion abnormalities are present. RIGHT VENTRICLE Normal right ventricular size and systolic function. LEFT ATRIUM The left atrial size is normal. RIGHT ATRIUM The right atrial size is normal. ATRIAL SEPTUM Normal atrial septal thickness without atrial level shunting by limited color doppler interrogation. AORTA The aortic root and proximal ascending aorta are normal in size on limited imaging. MITRAL VALVE Structurally normal mitral valve. Trace mitral valve regurgitation. AORTIC VALVE Trileaflet aortic valve. No aortic valve stenosis or regurgitation. TRICUSPID VALVE Structurally normal tricuspid valve. No tricuspid valve stenosis or regurgitation. PULMONARY VALVE The pulmonary valve is not well visualized. VESSELS The inferior vena cava is normal in size. PERICARDIUM No pericardial effusion. Yudi Coles MD (Electronically Signed) Final Date:23 June 2018 12:41
--- NOTE | 2018-06-23 14:28 | P.PN ---
Subjective Interval history: Patient is seen sitting up in bed following breakfast. She reports that she continues to have significant abdominal pain and discomfort. Denies any palpitations while sitting but says that her heart does "flip-flop" with any exertion and is particularly bad if she stands up. Reports to us that every time she loses weight a causes her heart rate to go down. Denies any shortness of breath. She does have some nausea but no vomiting. Reports some intermittent nonbloody diarrhea. No dysuria. Physical Exam Vital signs: Vital Signs 06/22/18 15:14 06/22/18 15:31 06/22/18 15:38 Temperature Pulse Rate 48 L 47 L Respiratory Rate 12 16 Blood Pressure 141/61 H 123/60 Pulse Oximetry 100 99 99 06/22/18 18:48 06/22/18 20:32 06/23/18 00:00 Temperature 96.1 F L 97.5 F L Pulse Rate 48 L 46 L 43 L Respiratory Rate 17 18 18 Blood Pressure 164/71 H 130/75 128/60 Pulse Oximetry 98 96 97 06/23/18 04:00 06/23/18 04:56 06/23/18 07:19 Temperature 97.4 F L Pulse Rate 47 L 43 L 50 L Respiratory Rate 16 Blood Pressure 124/58 L Pulse Oximetry 96 06/23/18 08:23 06/23/18 12:00 Temperature 98.6 F 98.2 F Pulse Rate 50 L 45 L Respiratory Rate 20 18 Blood Pressure 120/55 L 129/67 Pulse Oximetry 98 99 Intake & Output 06/22/18 06/23/18 06/23/18 18:59 06:59 18:59 Intake Total 999 Balance 999 Weight 113.398 kg Intake: IV 999 D5W/1/2NS + KCL 20 mEq Inj 1, 0 / 0 000 ML @ 100 mls/hr IV.CONT . Q10H MARGI Rx#:[id number] NS Inj 1,000 ML @ 100 mls/hr IV 999 / 999 .CONT .Q10H MARGI Rx#:[id number] Other: # Voids 1 Narrative: GENERAL: Well-nourished, well-developed adult female in no obvious distress. SKIN: Warm and dry. HEAD: Atraumatic. Normocephalic. CARDIOVASCULAR: Regular rate and rhythm. No murmur. [place]. RESPIRATORY: No accessory muscle use. Clear to auscultation. Breath sounds equal bilaterally. GASTROINTESTINAL: Abdomen soft, non-tender, distended. No guarding. Positive bowel sounds. MUSCULOSKELETAL: Extremities without clubbing, cyanosis, or edema. No obvious deformities. NEUROLOGICAL: Awake and alert. No obvious cranial nerve deficits. Motor grossly within normal limits. Normal speech. PSYCHIATRIC: Appropriate mood and affect; insight and judgment good. Results - Labs CBC & Chem 7: 06/23/18 06:20 06/22/18 15:40 Laboratory Results - last 24 hr 06/22/18 06/22/18 06/22/18 15:40 15:40 15:40 WBC 6.4 RBC 5.36 H Hgb 14.6 Hct 45.6 MCV 85.1 MCH 27.4 MCHC 32.1 RDW 14.3 Plt Count 258 MPV 7.6 Neut % (Auto) 60.8 Lymph % (Auto) 27.5 [place] % (Auto) 9.4 H Eos % (Auto) 1.8 Baso % (Auto) 0.5 Neut # (Auto) 3.9 Lymph # (Auto) 1.7 [place] # (Auto) 0.6 Eos # (Auto) 0.1 Baso # (Auto) 0.0 WBC Differential . Differential Comment Auto diff final PT 10.9 INR 1.1 APTT 27.8 D-Dimer Quant (PE/DVT) 0.58 H Sodium Potassium Chloride Carbon Dioxide Anion Gap BUN Creatinine Estimated GFR POC Glucose Random Glucose Hemoglobin A1c Calcium Total Bilirubin AST ALT Alkaline Phosphatase Troponin I Total Protein Albumin Triglycerides Cholesterol LDL Cholesterol, Calc HDL Cholesterol Cholesterol/HDL Ratio Urine Color Urine Clarity Urine pH Ur Specific Gibson Urine Protein Urine Glucose (UA) Urine Ketones Urine Occult Blood Urine Nitrate Urine Bilirubin Urine Urobilinogen Ur Leukocyte Esterase Urine RBC Urine WBC Ur Squamous Epith Cells Micro UA Comment Ur Microscopic Review Urine Culture Comments Stl C.difficile Tox PCR St C. diff Tox Epid 027 06/22/18 06/22/18 06/22/18 15:40 16:00 18:53 WBC RBC Hgb Hct MCV MCH MCHC RDW Plt Count MPV Neut % (Auto) Lymph % (Auto) [place] % (Auto) Eos % (Auto) Baso % (Auto) Neut # (Auto) Lymph # (Auto) [place] # (Auto) Eos # (Auto) Baso # (Auto) WBC Differential Differential Comment PT INR APTT D-Dimer Quant (PE/DVT) Sodium 145 Potassium 3.7 Chloride 108 H Carbon Dioxide 28.3 Anion Gap 9 BUN 12 Creatinine 0.98 Estimated GFR 58 L POC Glucose Random Glucose 89 Hemoglobin A1c Calcium 8.9 Total Bilirubin 0.4 AST 14 L ALT 24 Alkaline Phosphatase 58 Troponin I Less than 0.02 L Total Protein 7.6 Albumin 3.7 Triglycerides Cholesterol LDL Cholesterol, Calc HDL Cholesterol Cholesterol/HDL Ratio Urine Color Straw Urine Clarity Clear Urine pH 7.0 Ur Specific Gibson 1.003 Urine Protein Negative Urine Glucose (UA) Negative Urine Ketones Negative Urine Occult Blood Negative Urine Nitrate Negative Urine Bilirubin Negative Urine Urobilinogen Less than 2 Ur Leukocyte Esterase Negative Urine RBC Less than 1 Urine WBC Less than 1 Ur Squamous Epith Cells <1 Micro UA Comment Culture not ind Ur Microscopic Review Not Reportable Urine Culture Comments Culture not ind Stl C.difficile Tox PCR Negative St C. diff Tox Epid 027 Negative 06/22/18 06/22/18 06/23/18 18:55 19:20 00:15 WBC RBC Hgb Hct MCV MCH MCHC RDW Plt Count MPV Neut % (Auto) Lymph % (Auto) [place] % (Auto) Eos % (Auto) Baso % (Auto) Neut # (Auto) Lymph # (Auto) [place] # (Auto) Eos # (Auto) Baso # (Auto) WBC Differential Differential Comment PT 10.9 INR 1.1 APTT D-Dimer Quant (PE/DVT) Sodium Potassium Chloride Carbon Dioxide Anion Gap BUN Creatinine Estimated GFR POC Glucose Random Glucose Hemoglobin A1c Calcium Total Bilirubin AST ALT Alkaline Phosphatase Troponin I Less than 0.02 L Less than 0.02 L Total Protein Albumin Triglycerides Cholesterol LDL Cholesterol, Calc HDL Cholesterol Cholesterol/HDL Ratio Urine Color Urine Clarity Urine pH Ur Specific [place] Urine Protein Urine Glucose (UA) Urine Ketones Urine Occult Blood Urine Nitrate Urine Bilirubin Urine Urobilinogen Ur Leukocyte Esterase Urine RBC Urine WBC Ur Squamous Epith Cells Micro UA Comment Ur Microscopic Review Urine Culture Comments Stl C.difficile Tox PCR St C. diff Tox Epid 027 06/23/18 06/23/18 06/23/18 00:20 06:20 06:20 WBC 5.3 RBC 4.96 Hgb 13.8 Hct 42.3 MCV 85.4 MCH 27.8 MCHC 32.6 RDW 14.5 Plt Count 215 MPV 7.8 Neut % (Auto) Lymph % (Auto) [place] % (Auto) Eos % (Auto) Baso % (Auto) Neut # (Auto) Lymph # (Auto) [place] # (Auto) Eos # (Auto) Baso # (Auto) WBC Differential Differential Comment PT INR APTT 27.3 D-Dimer Quant (PE/DVT) Sodium Potassium Chloride Carbon Dioxide Anion Gap BUN Creatinine Estimated GFR POC Glucose Random Glucose Hemoglobin A1c 6.0 Calcium Total Bilirubin AST ALT Alkaline Phosphatase Troponin I Total Protein Albumin Triglycerides Cholesterol LDL Cholesterol, Calc HDL Cholesterol Cholesterol/HDL Ratio Urine Color Urine Clarity Urine pH Ur Specific [place] Urine Protein Urine Glucose (UA) Urine Ketones Urine Occult Blood Urine Nitrate Urine Bilirubin Urine Urobilinogen Ur Leukocyte Esterase Urine RBC Urine WBC Ur Squamous Epith Cells Micro UA Comment Ur Microscopic Review Urine Culture Comments Stl C.difficile Tox PCR St C. diff Tox Epid 027 06/23/18 06/23/18 06:20 13:51 WBC RBC Hgb Hct MCV MCH MCHC RDW Plt Count MPV Neut % (Auto) Lymph % (Auto) [place] % (Auto) Eos % (Auto) Baso % (Auto) Neut # (Auto) Lymph # (Auto) [place] # (Auto) Eos # (Auto) Baso # (Auto) WBC Differential Differential Comment PT INR APTT D-Dimer Quant (PE/DVT) Sodium Potassium Chloride Carbon Dioxide Anion Gap BUN Creatinine Estimated GFR POC Glucose 67 L Random Glucose Hemoglobin A1c Calcium Total Bilirubin AST ALT Alkaline Phosphatase Troponin I Total Protein Albumin Triglycerides 61 Cholesterol 150 LDL Cholesterol, Calc 96 HDL Cholesterol 41.6 Cholesterol/HDL Ratio 3.60 Urine Color Urine Clarity Urine pH Ur Specific Gibson Urine Protein Urine Glucose (UA) Urine Ketones Urine Occult Blood Urine Nitrate Urine Bilirubin Urine Urobilinogen Ur Leukocyte Esterase Urine RBC Urine WBC Ur Squamous Epith Cells Micro UA Comment Ur Microscopic Review Urine Culture Comments Stl C.difficile Tox PCR St C. diff Tox Epid 027 Microbiology 06/22/18 18:53 Stool Enteric Pathogens (PCR) - Final 06/22/18 18:53 Stool Stool Occult Blood (KARLY) - Final Hemoccult negative - Imaging Impressions Abdomen X-Ray 06/22/18 00:00 CONCLUSION: Nonspecific, nonobstructive bowel gas pattern. Chest X-Ray 06/22/18 15:33 CONCLUSION: Stable mild prominence of the cardiac silhouette. No focal consolidation. Assessment and Plan - Assessment (1) Chest pain Code(s): R07.9 - Chest pain, unspecified Status: Acute (2) A-fib Code(s): I48.91 - Unspecified atrial fibrillation Status: Acute (3) Abdominal distension Code(s): R14.0 - Abdominal distension (gaseous) Status: Acute (4) Bradycardia Code(s): R00.1 - Bradycardia, unspecified Status: Acute - Plan This is a 63-year-old female with a PMH of A. fib, Chronic Bradycardia and GERD who presented to the ER w/ complaints of chest pain, SOB and palpitations starting earlier today. States she follows w/ both Dr. East locally and with her [employer] at [place], has been on Eliquis for several years, but was recently switched to Xarelto due to complaints of abdominal distention, has been off all anticoagulation x2 days as she has not started Xarelto as of yet. A/P: Chest Pain: -w/ exertion, associated w/ SOB and palpitations, initial trop negative, EKG w/ no acute ischemia. -telemetry, check serial cardiac enzymes, check Lipid Profile, Hgb A1c, -no ASA due to ALLERGY, -hold B-yuliya due to bradycardia. -Start Statin. -Morphine prn. A-fib: -Patient refusing heparin drip -she would like to speak to cardiology first -Planned Xarelto as outpatient; will defer to cardiology Abdominal Distention: -KUB normal -Protonix IV, Mylanta prn. -Recommend outpatient follow up w/ GI for further work up. Bradycardia: -Chronic. Per review of vitals back to 2014, pt w/ chronic bradycardia 40-50's , hold B-yuliya, telemetry. - -Consult Dr. East for further eval as above. - DVT Prophylaxis: Heparin gtt -consider changing it patient refuses Discussed with patient, nurse. Patient seen with Dr. Khan. Will transferred to [facility].
--- NOTE | 2018-06-23 20:56 | MB ---
cc: Yudi Coles MD , Keyur Quijano MD,Kofi Borges MD DATE: 06/23/2018 REASON FOR CONSULT: Dizziness, abdominal pain, and bradycardia. HISTORY OF PRESENT ILLNESS: Ms. Hensley is a 63-year-old female with history of atrial fibrillation. She is followed by Dr. Quijano in [place] as well as Dr. Morgan. She was on Eliquis, cannot tolerate the medication, was subsequently switched to Xarelto a week ago, but had no chance of taking the Xarelto yet because she was complaining of abdominal pain and indigestion. She could not eat. Yesterday night, she decided to come to the emergency room where she was admitted. During hospitalization, had severe bradycardia. I was consulted for further evaluation and management. The chart was reviewed. The patient was evaluated. ALLERGIES: MULTIPLE. ASPIRIN, ATENOLOL, COREG, CAFFEINE, ACEBUTOLOL. MEDICATIONS: Currently, the patient is on: 1. Milk of magnesia. 2. Heparin IV. 3. Morphine. 4. Zofran. 5. Pravachol 40 mg a day. At home, she was on Xarelto that she did not take yet. She was on, 1. Aspirin. 2. Iodine. 3. Lidocaine. 4. Metoprolol. 5. Nebivolol. 6. Sotalol. 7. Timolol. 8. Cefuroxime. 9. Doxycycline. 10. Decongestant. Medications she is currently on, 1. Pravastatin. 2. Heparin. 3. Morphine. 4. Lactulose. 5. Zofran. REVIEW OF SYSTEMS: She referred some abdominal discomfort and nausea, but no shortness of breath, no palpitation, no fever. PHYSICAL EXAMINATION: GENERAL: Alert, fully oriented. VITAL SIGNS: Blood pressure is 129/67, pulse around 45, respiratory rate 18. LUNGS: Ventilated. CARDIOVASCULAR: S1, S2, bradycardic, regular. ABDOMEN: Soft. No mass. EXTREMITIES: No edema. ELECTROCARDIOGRAM: Sinus alli. No acute ST and T-wave changes. LABORATORY DATA: Hemoglobin is 13.8, white blood cell 5.3. INR 1.1. Potassium 3.7, creatinine 0.98. Troponin less than 0.02. ASSESSMENT AND RECOMMENDATIONS: Ms. Hensley is stable. She has bradycardia, but asymptomatic. Her main issues are abdominal pain and discomfort. She said this is why she is not taking the Xarelto. Also, she referred her heart flipping time to time and they told her the heart would go to the 30s, based on the fit-bit while she is sleeping. She is on no negative chronotropic medication and no antiarrhythmic. At this point, my recommendation is observation. There is no need for pacing support or any intervention for the low heart rate because the patient is asymptomatic and blood pressure is adequate. I will continue to monitor during hospitalization. Further decision by Dr. Morgan on Monday. MD RAMÍREZ Iniguez/shamar/velvet , 03:53 PM , 04:01 PM
--- NOTE | 2018-06-23 22:10 | ECG ---
Date Performed: 06/22/2018 Time Performed: 19:50:05 PTAGE: 63 years EKG: SINUS BRADYCARDIA MARKED LEFT AXIS DEVIATION PATTERN CONSISTENT WITH PULMONARY DISEASE NONS PECIFIC T-WAVE ABNORMALITY ABNORMAL ECG PREVIOUS TRACING : 06/22/2018 19.49 DOCTOR: Yudi Coles Interpretating Date/Time 06/23/2018 22:08:01
--- NOTE | 2018-06-23 22:17 | ECG ---
Date Performed: 06/22/2018 Time Performed: 15:16:14 PTAGE: 63 years EKG: SINUS BRADYCARDIA BORDERLINE LEFT AXIS DEVIATION NONSPECIFIC T-WAVE ABNORMALITY BORDERLINE ECG NO PREVIOUS TRACING DOCTOR: Yudi Coles Interpretating Date/Time 06/23/2018 22:12:03
[2018-06-24] MEDS: Sod Chloride 0.9% Inj 1,000 ML IV.CONT SCH ×2 (01:50→11:40)
[2018-06-24 04:53] LABS: Hematocrit 39.5 % (35.0-46.0); Hemoglobin 13.2 gm/dL (11.6-15.3); Mean Corpuscular HGB Conc 33.4 % (32.0-36.0); Mean Corpuscular Volume 83.8 fL (80.0-100.0); Mean Platelet Volume 7.9 fL (7.0-11.0); Platelet Count 214 th/mm3 (150-450); Red Blood Count 4.72 mil/mm3 (4.00-5.30); Red Cell Distribution Width 14.1 % (11.6-17.2); White Blood Count 5.5 th/mm3 (4.0-11.0)
[2018-06-24] MEDS: Pantoprazole Inj 40 MG Vial IV.PUSH SCH (08:57)
[2018-06-24] MEDS: Aluminum/Magnesium/Simethacone Susp 30 ML UDC PO PRN ×3 (09:00→21:45)
[2018-06-24] MEDS: Heparin Drip 25,000 UNIT/250 ML BAG IV.CONT PRN (09:12)
--- NOTE | 2018-06-24 13:37 | P.PN ---
Subjective Interval history: Follow-up chest pain/bradycardia/abdominal discomfort June 24, 2018-patient seen and examined; complaint of shortness of breath, denies any chest pain during my exam no nausea no vomiting with p.o. intake however patient reports some abdominal discomfort. She has multiple somatic complaints Physical Exam Vital signs: Vital Signs 06/23/18 14:00 06/23/18 15:00 06/23/18 16:00 Temperature 98.2 F Pulse Rate 50 L 47 L 44 L Respiratory Rate 18 Blood Pressure 123/55 L Pulse Oximetry 98 06/23/18 17:00 06/23/18 18:00 06/23/18 19:00 Temperature Pulse Rate 48 L 59 L 49 L Respiratory Rate Blood Pressure Pulse Oximetry 06/23/18 20:00 06/23/18 21:00 06/23/18 22:00 Temperature 98.1 F Pulse Rate 38 L 36 L 47 L Respiratory Rate 16 Blood Pressure 156/71 H Pulse Oximetry 98 06/23/18 23:00 06/24/18 00:00 06/24/18 01:00 Temperature Pulse Rate 49 L 42 L 42 L Respiratory Rate 16 Blood Pressure 132/56 L Pulse Oximetry 97 06/24/18 02:00 06/24/18 03:00 06/24/18 03:48 Temperature Pulse Rate 44 L 44 L 43 L Respiratory Rate 16 Blood Pressure 111/52 L Pulse Oximetry 97 06/24/18 04:00 06/24/18 05:00 06/24/18 05:08 Temperature Pulse Rate 46 L 48 L Respiratory Rate Blood Pressure Pulse Oximetry 98 06/24/18 06:00 06/24/18 08:00 06/24/18 10:10 Temperature 98.0 F Pulse Rate 40 L 44 L Respiratory Rate 18 Blood Pressure 126/54 L Pulse Oximetry 95 99 06/24/18 12:00 Temperature 98.5 F Pulse Rate 48 L Respiratory Rate 18 Blood Pressure 123/71 Pulse Oximetry 98 Intake & Output 06/23/18 06/24/18 06/24/18 18:59 06:59 18:59 Intake Total 4300 / 4300 450 / 450 250 / 250 Output Total 700 / 700 Balance 3600 / 3600 450 / 450 250 / 250 Weight 115.8 kg Intake: IV 3000 / 3000 250 / 250 Heparin/D5W 25,000 U/250 mL 25, 250 / 250 000 unit In 250 ml @ 1,000 UNITS/HR 10 mls/hr IV.CONT TITRATE PRN Rx#:[id number] NS Inj 1,000 ML @ 100 mls/hr IV 1000 / 1000 .CONT .Q10H MARGI Rx#:[id number] Oral 1300 / 1300 450 / 450 Output: Urine 700 / 700 Other: # Voids 2 Date of Last Bowel Movement 06/23/18 Narrative: GENERAL: NAD SKIN: Warm and dry. HEAD: Normocephalic. EYES: No scleral icterus. No injection or drainage. NECK: Supple, trachea midline. No JVD or lymphadenopathy. CARDIOVASCULAR: Regular rate and rhythm without murmurs, gallops, or rubs. RESPIRATORY: Breath sounds equal bilaterally. No accessory muscle use. GASTROINTESTINAL: Abdomen soft, non-tender, nondistended. MUSCULOSKELETAL: No cyanosis, or edema. BACK: Nontender without obvious deformity. No CVA tenderness. Results - Labs CBC & Chem 7: 06/24/18 03:45 06/22/18 15:40 Laboratory Results - last 24 hr 06/23/18 06/23/18 06/23/18 06:20 13:51 14:22 WBC RBC Hgb Hct MCV MCH MCHC RDW Plt Count MPV APTT POC Glucose 67 L 85 Hemoglobin A1c 6.0 06/23/18 06/24/18 06/24/18 20:29 03:45 03:45 WBC 5.5 RBC 4.72 Hgb 13.2 Hct 39.5 MCV 83.8 MCH 28.0 MCHC 33.4 RDW 14.1 Plt Count 214 MPV 7.9 APTT 33.5 H D 38.2 H POC Glucose Hemoglobin A1c 06/24/18 06/24/18 06/24/18 10:21 10:47 11:22 WBC RBC Hgb Hct MCV MCH MCHC RDW Plt Count MPV APTT 46.9 H D POC Glucose 73 122 H Hemoglobin A1c Microbiology 06/22/18 18:53 Stool Enteric Pathogens (PCR) - Final Assessment and Plan - Assessment (1) Chest pain Code(s): R07.9 - Chest pain, unspecified Status: Acute (2) A-fib Code(s): I48.91 - Unspecified atrial fibrillation Status: Acute (3) Abdominal distension Code(s): R14.0 - Abdominal distension (gaseous) Status: Acute (4) Bradycardia Code(s): R00.1 - Bradycardia, unspecified Status: Acute - Plan 63-year-old female with Chest Pain: -w/ exertion, associated w/ SOB and palpitations, initial trop negative, EKG w/ no acute ischemia. -telemetry, check serial cardiac enzymes, check Lipid Profile, Hgb A1c, -no ASA due to ALLERGY, -hold B-yuliya due to bradycardia. -Continue heparin drip, statin. -Morphine prn. Appreciate input from cardiology A-fib: -Currently on heparin drip -Planned Xarelto as outpatient; will defer to cardiology Abdominal Distention: -KUB normal -Protonix IV, Mylanta prn. Patient 1 Protonix discontinued -Recommend outpatient follow up w/ GI for further work up. Bradycardia: -Chronic. Per review of vitals back to 2014, pt w/ chronic bradycardia 40-50's , hold B-yuliya, telemetry. - -Cardiology following - DVT Prophylaxis: Heparin gtt
--- NOTE | 2018-06-24 13:44 | P.PN ---
Subjective Interval history: SOB on activity Physical Exam Vital signs: Vital Signs 06/23/18 14:00 06/23/18 15:00 06/23/18 16:00 Temperature 98.2 F Pulse Rate 50 L 47 L 44 L Respiratory Rate 18 Blood Pressure 123/55 L Pulse Oximetry 98 06/23/18 17:00 06/23/18 18:00 06/23/18 19:00 Temperature Pulse Rate 48 L 59 L 49 L Respiratory Rate Blood Pressure Pulse Oximetry 06/23/18 20:00 06/23/18 21:00 06/23/18 22:00 Temperature 98.1 F Pulse Rate 38 L 36 L 47 L Respiratory Rate 16 Blood Pressure 156/71 H Pulse Oximetry 98 06/23/18 23:00 06/24/18 00:00 06/24/18 01:00 Temperature Pulse Rate 49 L 42 L 42 L Respiratory Rate 16 Blood Pressure 132/56 L Pulse Oximetry 97 06/24/18 02:00 06/24/18 03:00 06/24/18 03:48 Temperature Pulse Rate 44 L 44 L 43 L Respiratory Rate 16 Blood Pressure 111/52 L Pulse Oximetry 97 06/24/18 04:00 06/24/18 05:00 06/24/18 05:08 Temperature Pulse Rate 46 L 48 L Respiratory Rate Blood Pressure Pulse Oximetry 98 06/24/18 06:00 06/24/18 08:00 06/24/18 10:10 Temperature 98.0 F Pulse Rate 40 L 44 L Respiratory Rate 18 Blood Pressure 126/54 L Pulse Oximetry 95 99 06/24/18 12:00 Temperature 98.5 F Pulse Rate 48 L Respiratory Rate 18 Blood Pressure 123/71 Pulse Oximetry 98 Intake & Output 06/23/18 06/24/18 06/24/18 18:59 06:59 18:59 Intake Total 4300 / 4300 450 / 450 250 / 250 Output Total 700 / 700 Balance 3600 / 3600 450 / 450 250 / 250 Weight 115.8 kg Intake: IV 3000 / 3000 250 / 250 Heparin/D5W 25,000 U/250 mL 25, 250 / 250 000 unit In 250 ml @ 1,000 UNITS/HR 10 mls/hr IV.CONT TITRATE PRN Rx#:[id number] NS Inj 1,000 ML @ 100 mls/hr IV 1000 / 1000 .CONT .Q10H MARGI Rx#:[id number] Oral 1300 / 1300 450 / 450 Output: Urine 700 / 700 Other: # Voids 2 Date of Last Bowel Movement 06/23/18 - Constitutional no acute distress - Routine HEENT Exam Head: Present: normocephalic Eye: Present: EOMI, PERRL ENT: Present: mucous membranes moist - Routine Respiratory Exam Present: CTA bilaterally - Routine Cardiovascular Exam Present: RRR, bradycardia - Routine Neurological Exam Present: alert, oriented X3 Results - Labs CBC & Chem 7: 06/24/18 03:45 06/22/18 15:40 Laboratory Results - last 24 hr 06/23/18 06/23/18 06/23/18 13:51 14:22 20:29 WBC RBC Hgb Hct MCV MCH MCHC RDW Plt Count MPV APTT 33.5 H D POC Glucose 67 L 85 06/24/18 06/24/18 06/24/18 03:45 03:45 10:21 WBC 5.5 RBC 4.72 Hgb 13.2 Hct 39.5 MCV 83.8 MCH 28.0 MCHC 33.4 RDW 14.1 Plt Count 214 MPV 7.9 APTT 38.2 H POC Glucose 73 06/24/18 06/24/18 10:47 11:22 WBC RBC Hgb Hct MCV MCH MCHC RDW Plt Count MPV APTT 46.9 H D POC Glucose 122 H Microbiology 06/22/18 18:53 Stool Enteric Pathogens (PCR) - Final Assessment and Plan - Assessment (1) A-fib Code(s): I48.91 - Unspecified atrial fibrillation Status: Acute Plan: In sinus bradycardia HR increases with activity Complaining about irregular heart rate. Telemetry shows sinus rhythm Will continue with current management can be DH and follow in [place] . Further management in AM by Dr East (2) Bradycardia Code(s): R00.1 - Bradycardia, unspecified Status: Acute Plan: Asymptomatic (3) Chest pain Code(s): R07.9 - Chest pain, unspecified Status: Acute Plan: No chest pain reported
[2018-06-25] MEDS: Heparin Drip 25,000 UNIT/250 ML BAG IV.CONT PRN (05:07)
[2018-06-25] MEDS: Aluminum/Magnesium/Simethacone Susp 30 ML UDC PO PRN (08:51)
[2018-06-25] MEDS ORDERED: Promethazine 25 MG Supp RECTAL PRN (10:09)
[2018-06-25] MEDS ORDERED: Chlorpromazine Inj 50 MG/2 ML Ampule IM PRN (11:00)
--- NOTE | 2018-06-25 14:19 | P.PN ---
Subjective Interval history: Follow-up chest pain/bradycardia/abdominal discomfort June 24, 2018-patient seen and examined; complaint of shortness of breath, denies any chest pain during my exam no nausea no vomiting with p.o. intake however patient reports some abdominal discomfort. She has multiple somatic complaints June 25, 2018-patient seen and examined, is requesting to be transferred to [place]. Complains of chest pain, abdominal pain, however refusing flat and upright. Also reporting shortness of breath. Physical Exam Vital signs: Vital Signs 06/24/18 15:00 06/24/18 16:00 06/24/18 17:00 Temperature 97.9 F Pulse Rate 46 L 41 L 48 L Respiratory Rate 18 Blood Pressure 140/74 Pulse Oximetry 98 06/24/18 18:00 06/24/18 19:00 06/24/18 20:00 Temperature 98.7 F Pulse Rate 56 L 44 L 44 L Respiratory Rate 18 Blood Pressure 99/51 L Pulse Oximetry 97 06/24/18 21:00 06/24/18 22:00 06/24/18 23:00 Temperature Pulse Rate 42 L 44 L 44 L Respiratory Rate Blood Pressure Pulse Oximetry 06/24/18 23:05 06/25/18 00:00 06/25/18 01:00 Temperature 97.7 F Pulse Rate 47 L 46 L 58 L Respiratory Rate 18 Blood Pressure 110/55 L Pulse Oximetry 98 06/25/18 02:00 06/25/18 03:00 06/25/18 04:00 Temperature 98.4 F Pulse Rate 40 L 60 44 L Respiratory Rate 18 Blood Pressure 108/55 L Pulse Oximetry 97 06/25/18 05:00 06/25/18 06:00 06/25/18 07:00 Temperature Pulse Rate 43 L 42 L 47 L Respiratory Rate Blood Pressure Pulse Oximetry 06/25/18 08:00 06/25/18 09:00 06/25/18 09:34 Temperature 98.4 F Pulse Rate 43 L 50 L 49 L Respiratory Rate 18 Blood Pressure 119/53 L Pulse Oximetry 97 06/25/18 11:00 06/25/18 12:00 06/25/18 13:00 Temperature 98.2 F Pulse Rate 47 L 42 L 43 L Respiratory Rate 18 Blood Pressure 124/65 Pulse Oximetry 97 06/25/18 13:53 Temperature Pulse Rate 45 L Respiratory Rate Blood Pressure Pulse Oximetry Intake & Output 06/24/18 06/25/18 06/25/18 18:59 06:59 18:59 Intake Total 610 / 610 490 / 490 Balance 610 / 610 490 / 490 Weight 115.2 kg Intake: IV 250 / 250 250 / 250 Heparin/D5W 25,000 U/250 mL 25, 250 / 250 250 / 250 000 unit In 250 ml @ 1,000 UNITS/HR 10 mls/hr IV.CONT TITRATE PRN Rx#:[id number] Oral 360 / 360 240 / 240 Other: # Voids 3 4 Date of Last Bowel Movement 06/23/18 06/23/18 06/23/18 Narrative: GENERAL: NAD SKIN: Warm and dry. HEAD: Normocephalic. EYES: No scleral icterus. No injection or drainage. NECK: Supple, trachea midline. No JVD or lymphadenopathy. CARDIOVASCULAR: Regular rate and rhythm without murmurs, gallops, or rubs. RESPIRATORY: Breath sounds equal bilaterally. No accessory muscle use. GASTROINTESTINAL: Abdomen soft, non-tender, nondistended. MUSCULOSKELETAL: No cyanosis, or edema. BACK: Nontender without obvious deformity. No CVA tenderness. Results - Labs CBC & Chem 7: 06/24/18 03:45 06/22/18 15:40 Laboratory Results - last 24 hr 06/24/18 06/25/18 17:15 06:13 APTT 44.0 H 45.7 H Assessment and Plan - Assessment (1) Chest pain Code(s): R07.9 - Chest pain, unspecified Status: Acute (2) A-fib Code(s): I48.91 - Unspecified atrial fibrillation Status: Acute (3) Abdominal distension Code(s): R14.0 - Abdominal distension (gaseous) Status: Acute (4) Bradycardia Code(s): R00.1 - Bradycardia, unspecified Status: Acute - Plan 63-year-old female with Chest Pain: -w/ exertion, associated w/ SOB and palpitations, initial trop negative, EKG w/ no acute ischemia. -telemetry -no ASA due to ALLERGY, -hold B-yuliya due to bradycardia. -Continue heparin drip, statin. -Morphine prn. -Appreciate input from cardiology A-fib: -Currently on heparin drip -Planned Xarelto as outpatient; will defer to cardiology Abdominal Distention: -KUB normal -Protonix IV, Mylanta prn. Patient has refused Protonix -Recommend outpatient follow up w/ GI for further work up. -Order flat and upright, however patient declined Bradycardia: -Chronic. Per review of vitals back to 2014, pt w/ chronic bradycardia 40-50's , hold B-yuliya, telemetry. - -Cardiology following - Patient is requesting transfer to [place] - DVT Prophylaxis: Heparin gtt
--- NOTE | 2018-06-25 16:02 | P.PNCA ---
Subjective Interval history: No acute events. Continues to complain of stomach pain. Physical Exam Vital signs: Vital Signs 06/24/18 17:00 06/24/18 18:00 06/24/18 19:00 Temperature Pulse Rate 48 L 56 L 44 L Respiratory Rate Blood Pressure Pulse Oximetry 06/24/18 20:00 06/24/18 21:00 06/24/18 22:00 Temperature 98.7 F Pulse Rate 44 L 42 L 44 L Respiratory Rate 18 Blood Pressure 99/51 L Pulse Oximetry 97 06/24/18 23:00 06/24/18 23:05 06/25/18 00:00 Temperature 97.7 F Pulse Rate 44 L 47 L 46 L Respiratory Rate 18 Blood Pressure 110/55 L Pulse Oximetry 98 06/25/18 01:00 06/25/18 02:00 06/25/18 03:00 Temperature Pulse Rate 58 L 40 L 60 Respiratory Rate Blood Pressure Pulse Oximetry 06/25/18 04:00 06/25/18 05:00 06/25/18 06:00 Temperature 98.4 F Pulse Rate 44 L 43 L 42 L Respiratory Rate 18 Blood Pressure 108/55 L Pulse Oximetry 97 06/25/18 07:00 06/25/18 08:00 06/25/18 09:00 Temperature 98.4 F Pulse Rate 47 L 43 L 50 L Respiratory Rate 18 Blood Pressure 119/53 L Pulse Oximetry 97 06/25/18 09:34 06/25/18 11:00 06/25/18 12:00 Temperature 98.2 F Pulse Rate 49 L 47 L 42 L Respiratory Rate 18 Blood Pressure 124/65 Pulse Oximetry 97 06/25/18 13:00 06/25/18 13:53 06/25/18 15:00 Temperature Pulse Rate 43 L 45 L 48 L Respiratory Rate Blood Pressure Pulse Oximetry Intake & Output 06/24/18 06/25/18 06/25/18 18:59 06:59 18:59 Intake Total 610 / 610 490 / 490 Balance 610 / 610 490 / 490 Weight 115.2 kg Intake: IV 250 / 250 250 / 250 Heparin/D5W 25,000 U/250 mL 25, 250 / 250 250 / 250 000 unit In 250 ml @ 1,000 UNITS/HR 10 mls/hr IV.CONT TITRATE PRN Rx#:[id number] Oral 360 / 360 240 / 240 Other: # Voids 3 4 Date of Last Bowel Movement 06/23/18 06/23/18 06/23/18 - Constitutional no acute distress - Routine HEENT Exam Head: Present: normocephalic - Routine Neck Exam Absent: JVD - Routine Cardiovascular Exam Present: S1, S2, bradycardia - Routine Abdominal Exam Present: soft, normoactive bowel sounds. Absent: tenderness - Routine Neurological Exam Present: alert, oriented X3, CN II-XII intact Assessment and Plan - Plan pAfib-in NSR Sinus Bradycardia Abdominal Discomfort and nausea Had a lengthy discussion with the patient. She was requesting to be transferred to [facility] as inpatient, but there does not appear to be acute need for transfer. She is currently asymptomatic from the standpoint of bradycardia and in a NSR. I think it is reasonable to stop the heparin gtt, and try Xarelto tonight. I doubt that her epigastric discomfort is directly related to Eliquis but I don't see the harm in changing NOAC therapy (a plan that was outlined by her PCP).I will follow up the patient tomorrow in the am. Likely d/c home tomorrow and follow up with Dr. Quijano. Thank you for allowing me to participate. Please feel free to contact me with any questions.
[2018-06-25] MEDS ORDERED: Rivaroxaban 20 MG Tablet PO SCH (20:00)
[2018-06-26 03:56] VITALS: RESP 18
--- NOTE | 2018-06-26 12:19 | P.PN ---
Subjective Interval history: Follow-up chest pain/bradycardia/abdominal discomfort June 24, 2018-patient seen and examined; complaint of shortness of breath, denies any chest pain during my exam no nausea no vomiting with p.o. intake however patient reports some abdominal discomfort. She has multiple somatic complaints June 25, 2018-patient seen and examined, is requesting to be transferred to [place]. Complains of chest pain, abdominal pain, however refusing flat and upright. Also reporting shortness of breath. June 26, 2018-patient seen and examined, no acute event overnight denies any chest pain. Only complaint of abdominal discomfort. States after discharge , she is heading straight to [place] Physical Exam Vital signs: Vital Signs 06/25/18 13:00 06/25/18 13:53 06/25/18 15:00 Temperature Pulse Rate 43 L 45 L 48 L Respiratory Rate Blood Pressure Pulse Oximetry 06/25/18 16:00 06/25/18 17:00 06/25/18 17:04 Temperature 98.1 F Pulse Rate 40 L 42 L 44 L Respiratory Rate 18 Blood Pressure 145/71 H Pulse Oximetry 97 06/25/18 19:00 06/25/18 20:00 06/25/18 21:00 Temperature 97.8 F Pulse Rate 51 L 48 L 46 L Respiratory Rate 18 Blood Pressure 129/68 Pulse Oximetry 97 06/25/18 22:00 06/25/18 23:00 06/26/18 00:00 Temperature 98.4 F Pulse Rate 56 L 52 L 46 L Respiratory Rate 20 Blood Pressure 123/67 Pulse Oximetry 91 L 06/26/18 01:00 06/26/18 02:00 06/26/18 03:00 Temperature 98.3 F Pulse Rate 42 L 42 L 41 L Respiratory Rate 18 Blood Pressure 100/44 L Pulse Oximetry 91 L 06/26/18 04:00 06/26/18 05:00 06/26/18 06:00 Temperature Pulse Rate 44 L 42 L 45 L Respiratory Rate Blood Pressure Pulse Oximetry 06/26/18 07:00 06/26/18 08:00 06/26/18 08:05 Temperature 97.8 F Pulse Rate 53 L 50 L 48 L Respiratory Rate 18 Blood Pressure 117/70 Pulse Oximetry 97 06/26/18 08:29 06/26/18 11:44 Temperature Pulse Rate Respiratory Rate Blood Pressure Pulse Oximetry 97 97 Intake & Output 06/25/18 06/26/18 06/26/18 18:59 06:59 18:59 Intake Total 730 / 730 240 / 240 Balance 730 / 730 240 / 240 Weight 115.7 kg 115.7 kg Intake: IV 250 / 250 Heparin/D5W 25,000 U/250 mL 25, 250 / 250 000 unit In 250 ml @ 1,000 UNITS/HR 10 mls/hr IV.CONT TITRATE PRN Rx#:[id number] Oral 480 / 480 240 / 240 Other: # Voids 3 3 Date of Last Bowel Movement 06/23/18 06/23/18 06/25/18 Results - Labs CBC & Chem 7: 06/24/18 03:45 06/22/18 15:40 Laboratory Results - last 24 hr 06/25/18 17:34 APTT 27.1 D Assessment and Plan - Assessment (1) Chest pain Code(s): R07.9 - Chest pain, unspecified Status: Deleted (2) A-fib Code(s): I48.91 - Unspecified atrial fibrillation Status: Deleted (3) Abdominal distension Code(s): R14.0 - Abdominal distension (gaseous) Status: Acute (4) Bradycardia Code(s): R00.1 - Bradycardia, unspecified Status: Deleted - Plan 63-year-old female with Chest Pain: -w/ exertion, associated w/ SOB and palpitations, initial trop negative, EKG w/ no acute ischemia. -telemetry -no ASA due to ALLERGY, -hold B-yuliya due to bradycardia. -Continue heparin drip, statin. -Morphine prn. -Appreciate input from cardiology A-fib: -s/p heparin drip -Planned Xarelto as outpatient; cardiology recommended Xarelto Abdominal Distention: -KUB normal -Protonix IV, Mylanta prn. Patient has refused Protonix -Recommend outpatient follow up w/ GI for further work up. -Order flat and upright, however patient declined Bradycardia: -Chronic. Per review of vitals back to 2014, pt w/ chronic bradycardia 40-50's , hold B-yuliya, telemetry. - -Cardiology following; patient was seen yesterday June 25, 2018 by cardiology and states there was no indication for transfer to [place]
[2018-06-26 13:09] VITALS: PULSE 48
[2018-06-26 13:11] VITALS: BP 127/69; TEMP 98; O2SAT 93
--- NOTE | 2018-06-26 14:20 | P.DS ---
Date of admission: 06/22/18 18:07 Primary care physician: UNKNOWN Anticipated date of discharge: 06/26/18 Brief History from admission: This is a 63-year-old female with a PMH of A. fib, Chronic Bradycardia and GERD who presented to the ER w/ complaints of chest pain, SOB and palpitations starting earlier today. States she follows w/ both Dr. East locally and with her Oncology Pharmacist at [facility], has been on Eliquis for several years, but was recently switched to Xarelto due to complaints of abdominal distention, has been off all anticoagulation x2 days as she has not started Xarelto as of yet. Today, states she has episode of severe SOB, palpitations and chest pain when she got up to take her son to the doctor, states "I couldn't even walk". Notes multiple episodes of "my heart flip flopping every time I get up to walk". Denies fever, chills or cough. Also notes ongoing abdominal distention since April 2018, has been following w/ PCP at [facility], believes she was referred for CT Abd/Pelvis as outpatient, however has contrast allergy and needs premedication. Notes episodes of nausea/vomiting at the start of symptoms in April, however no symptoms since then. Today, did note few episodes of non- bloody diarrhea, otherwise bowel movements have been normal. Taking Mylanta w/ minimal relief. On arrival, BP 141/61, HR 48, O2 sat 100% on RA. CBC unremarkable. INR 1.1. Chemistry essentially unremarkable except for GFR 58. Troponin negative. UA negative. C. difficile pending. CXR was stable prominence of cardiac silhouette, no focal consolidation. EKG with bradycardia , no acute ischemia. While in the ER, pt was noted to have episode of possible A-flutter by ER PA, HR reportedly 40-60's. Currently chest pain free. DS: Diagnosis - Discharge Diagnosis (1) Chest pain Status: Deleted (2) A-fib Status: Deleted (3) Abdominal distension Status: Acute (4) Bradycardia Status: Deleted DS: Medications - Discharge Medications Prescriptions: pravastatin 40 mg PO DAILY #30 tab DS: Summary Hospital Course: While in the hospital, patient was treated for: Chest Pain: -w/ exertion, associated w/ SOB and palpitations, initial trop negative, EKG w/ no acute ischemia. -telemetry -no ASA due to ALLERGY, -hold B-yuliya due to bradycardia. -s/p heparin drip, treated with statin. -Morphine prn. -Appreciate input from cardiology A-fib: -s/p heparin drip -Planned Xarelto as outpatient; cardiology recommended Xarelto Abdominal Distention: -KUB normal -Protonix IV, Mylanta prn. Patient has refused Protonix -Recommend outpatient follow up w/ GI for further work up. Bradycardia: -Chronic. Per review of vitals back to 2014, pt w/ chronic bradycardia 40-50's , hold B-yuliya, telemetry. - -Cardiology following; patient was seen June 25, 2018 by cardiology and states there was no indication for transfer to [place] - Time Spent with Patient Total time spent providing and/or coordinating discharge services: Less than 30 minutes - Quality: VTE Deep Vein Thrombosis/Pulmonary Embolism Present on Admission: No Exam Vital signs: Vital Signs 06/25/18 15:00 06/25/18 16:00 06/25/18 17:00 Temperature 98.1 F Pulse Rate 48 L 40 L 42 L Respiratory Rate 18 Blood Pressure 145/71 H Pulse Oximetry 97 06/25/18 17:04 06/25/18 19:00 06/25/18 20:00 Temperature 97.8 F Pulse Rate 44 L 51 L 48 L Respiratory Rate 18 Blood Pressure 129/68 Pulse Oximetry 97 06/25/18 21:00 06/25/18 22:00 06/25/18 23:00 Temperature 98.4 F Pulse Rate 46 L 56 L 52 L Respiratory Rate 20 Blood Pressure 123/67 Pulse Oximetry 91 L 06/26/18 00:00 06/26/18 01:00 06/26/18 02:00 Temperature Pulse Rate 46 L 42 L 42 L Respiratory Rate Blood Pressure Pulse Oximetry 06/26/18 03:00 06/26/18 04:00 06/26/18 05:00 Temperature 98.3 F Pulse Rate 41 L 44 L 42 L Respiratory Rate 18 Blood Pressure 100/44 L Pulse Oximetry 91 L 06/26/18 06:00 06/26/18 07:00 06/26/18 08:00 Temperature Pulse Rate 45 L 53 L 50 L Respiratory Rate Blood Pressure Pulse Oximetry 06/26/18 08:05 06/26/18 08:29 06/26/18 09:00 Temperature 97.8 F Pulse Rate 48 L 56 L Respiratory Rate 18 Blood Pressure 117/70 Pulse Oximetry 97 97 06/26/18 10:00 06/26/18 11:00 06/26/18 11:44 Temperature Pulse Rate 44 L 70 Respiratory Rate Blood Pressure Pulse Oximetry 97 06/26/18 12:00 06/26/18 13:00 Temperature 98 F Pulse Rate 46 L 48 L Respiratory Rate 18 Blood Pressure 127/69 Pulse Oximetry 93 L Intake & Output 06/25/18 06/26/18 06/26/18 18:59 06:59 18:59 Intake Total 730 / 730 240 / 240 240 / 240 Balance 730 / 730 240 / 240 240 / 240 Weight 115.7 kg 115.7 kg Intake: IV 250 / 250 Heparin/D5W 25,000 U/250 mL 25, 250 / 250 000 unit In 250 ml @ 1,000 UNITS/HR 10 mls/hr IV.CONT TITRATE PRN Rx#:[id number] Oral 480 / 480 240 / 240 240 / 240 Other: # Voids 3 3 2 Date of Last Bowel Movement 06/23/18 06/23/18 06/25/18 Narrative: GENERAL: NAD SKIN: Warm and dry. HEAD: Normocephalic. EYES: No scleral icterus. No injection or drainage. NECK: Supple, trachea midline. No JVD or lymphadenopathy. CARDIOVASCULAR: Regular rate and rhythm without murmurs, gallops, or rubs. RESPIRATORY: Breath sounds equal bilaterally. No accessory muscle use. GASTROINTESTINAL: Abdomen soft, non-tender, nondistended. MUSCULOSKELETAL: No cyanosis, or edema. BACK: Nontender without obvious deformity. No CVA tenderness. Results Procedures completed during hospitalization: None Labs on day of discharge: Labs from last 24 hours 06/25/18 17:34 APTT 27.1 D - Impressions ITS Impressions Abdomen X-Ray 06/22/18 00:00 CONCLUSION: Nonspecific, nonobstructive bowel gas pattern. Chest X-Ray 06/22/18 15:33 CONCLUSION: Stable mild prominence of the cardiac silhouette. No focal consolidation. Discharge Plan - Discharge Disposition Patient Disposition: 01 Discharge Home - Discharge Condition Condition: Stable - Discharge Order Discharge Orders: Discharge Order (Routine); Ordered 06/26/18 Ordered By: Ronnie Khan - Physicians Team Primary Care Provider: UNKNOWN, Attending Provider: Ronnie Khan Other Providers: Kofi Morgan MD
== END 2018-06-26 13:50 | disposition home or self-care (01) ==
LOC: NEDA 15:11 → NEPE 15:11 → NEPGCP 20:22 → HCIS 06-23 12:10
PROVIDERS: ADMIT Hospitalist; ATTEND Hospitalist